=== PATIENT | male | born 1960 | race Caucasian/White ===

== ENCOUNTER → 2021-01-25 11:09 | Outpatient (BNVA) | payer OTHER, SELFPAY | PROVIDERS: PCP Internal Medicine Geriatric Medicine; Referring Provider Internal Medicine Geriatric Medicine; Visit Provider Surgery | DX: K42.9 Umbilical hernia without obstruction or gangrene (principal); L72.0 Epidermal cyst | CPT/HCPCS: 99202 ==

== ENCOUNTER 2021-02-07 07:51 | Day surgery (SDC) | payer OTHER, SELFPAY ==
[2021-01-31 12:49] VITALS: BMI 33.0
[2021-01-31 12:51] VITALS: BMI 33.0
--- NOTE | 2021-02-03 15:25 | P.CONAN_ITS ---
Documented by User: Jacqueline Swanson NP 02/03/21 15:41 HPI - Anesthesia Eval Consult details Narrative: 60yo M for Umbilical Hernia Repair with Mesh and Right Neck Cyst Excision Plavix for h/o stroke (no residual) PMFSH Active Problems Active Problems: All Active Problems (Updated 01/31/21 @ 12:48 by Maureen Gagnon RN) Umbilical hernia (Acute) Epidermal inclusion cyst (Acute) Lacunar stroke (Chronic) Past Medical History Medical History (Updated 01/31/21 @ 12:48 by Maureen Gagnon RN) COVID-19 vaccine series completed Elevated cholesterol GERD (gastroesophageal reflux disease) Lacunar stroke Sleep apnea Family History Family History Father Prostate cancer Surgical History Surgical History (Updated 01/31/21 @ 12:48 by Maureen Gagnon RN) H/O colonoscopy Hx of shoulder surgery Social History Social History Are you a primary director of critical care to a significant other at home: No Do you presently have visiting nurse or other home services: No Alcohol intake: never Patient Tobacco Use Status: Former Tobacco user Quit Date: 11/2019 Tobacco use type: Cigarette Use of substances other than those prescribed or required for medical reasons: No Have you been hit, kicked, punched, or otherwise hurt by someone within the past year? If so, by whom?: No Are you DNR?: No Advance Directives: No Advance Directives Information Provided: Yes (informational brochure mailed) Advance Directives on File: No Recently lost weight without trying: No Eating poorly because of decreased appetite: No Nutrition Risks: No Nutritional Risk Poor oral hygiene: No (upper & lower partials) Meds Allergies Allergy/AdvReac Type Severity Reaction Status Date / Time No Known Allergies Allergy Verified 01/25/21 11:21 Home Medications Medication Instructions Recorded Confirmed Last Taken Type clopidogrel 75 mg tablet 75 mg PO DAILY 01/25/21 01/31/21 01/30/21 History pantoprazole 40 mg tablet,delayed 40 mg PO DAILY 01/25/21 01/31/21 Unknown History release pravastatin 20 mg tablet 20 mg PO DAILY 01/25/21 01/31/21 Unknown History Exam Exam Date and Time: February 03, 2021 1525 Height,Weight and Vital Signs: Height 5 ft 10 in Weight 104.326 kg Assessment and Plan Assessment Anesthesia Assessment: Chart Reviewed Documented by User: Gaurav Hall MD 02/07/21 09:23 [facility] Past Medical History Medical History (Updated 01/31/21 @ 12:48 by Maureen Gagnon RN) COVID-19 vaccine series completed Elevated cholesterol GERD (gastroesophageal reflux disease) Lacunar stroke Sleep apnea Family History Family History Father Prostate cancer Family history of problems with anesthesia: No Surgical History Surgical History (Updated 01/31/21 @ 12:48 by Maureen Gagnon RN) H/O colonoscopy Hx of shoulder surgery History of Problems with Anesthesia: No Social History Social History Are you a primary director of critical care to a significant other at home: No Do you presently have visiting nurse or other home services: No Alcohol intake: never Patient Tobacco Use Status: Former Tobacco user Quit Date: 11/2019 Tobacco use type: Cigarette Use of substances other than those prescribed or required for medical reasons: No Have you been hit, kicked, punched, or otherwise hurt by someone within the past year? If so, by whom?: No Are you DNR?: No Advance Directives: No Advance Directives Information Provided: Yes (informational brochure mailed) Advance Directives on File: No Recently lost weight without trying: No Eating poorly because of decreased appetite: No Nutrition Risks: No Nutritional Risk Poor oral hygiene: No (upper & lower partials) Meds Allergies Allergy/AdvReac Type Severity Reaction Status Date / Time No Known Allergies Allergy Verified 01/25/21 11:21 Home Medications Medication Instructions Recorded Confirmed Last Taken Type clopidogrel 75 mg tablet 75 mg PO DAILY 01/25/21 01/31/21 01/30/21 History pantoprazole 40 mg tablet,delayed 40 mg PO DAILY 01/25/21 01/31/21 Unknown History release pravastatin 20 mg tablet 20 mg PO DAILY 01/25/21 01/31/21 Unknown History Exam Airway Mallampati Class: II TM Dist: >3cm Neck ROM: Full Partial: Lower Loose/Missing/Broken Teeth: Yes and Lower Heart: ok Lungs: ok Assessment and Plan Assessment Anesthesia Assessment: Anesthesia Plan Discussed and Chart Reviewed Final Anesthetic Review Family History of Problems with Anesthesia: No History of Problems with Anesthesia: No NPO: Yes ASA Class: III Final Preanesthetic Review: No Changes in Pt Med Stat, Meds/Allgs Chart Reviewed, Consent Obtained/Reviewed and Anes Risks/Benef Reviewed Patient Risk: Intermediate Procedure Risk: Low Anesthetic Plan Anesthetic Plan: GA and Agree w/ Assess. and Plan Disposition: Standard PACU
[2021-02-07] VITALS (8 sets, daily range): BP systolic 135–161; BP diastolic 86–99; PULSE 67–72; RESP 16–18; TEMP 36.2–36.4; O2SAT 96–98
[2021-02-07] MEDS: Lactated Ringers 1,000 ML 100 ML IVCONT (08:19)
--- NOTE | 2021-02-07 09:18 | MHC.SHP ---
Pre-Procedural Eval Section A Date of Service: 02/07/21 The patient is an INPATIENT: No Changes since office visit: Yes Patient answered all questions; No Cold of Flu in the past 2 weeks, No New Medical Problems and No Changes in Medication The History & Physical has been completed within 30 days and I have reviewed it.: Yes Section B Chief Complaint: Umbilical hernia, Epidermal inclusion cyst Allergies: Allergies Allergy/AdvReac Type Severity Reaction Status Date / Time No Known Allergies Allergy Verified 01/25/21 11:21 Plan Diagnosis/Plan: Unchanged I have reviewed the history and physical and performed a pertinent physical examination on my patient. No changes have occurred unless specified.
--- NOTE | 2021-02-07 10:29 | W.PM.OPN ---
Operative Note Operative Note Date of Service: 02/07/21 Narrative: Preoperative diagnosis:Umbilical hernia, cyst right neck Postoperative diagnosis: same Procedure: Repair of umbilical hernia, excision of right neck cyst Surgeon: Michael More MD Heat Treatment Technician: Anabela Green PA-C Anesthesia:General LMA Indications for procedure: 60 year old male patient with a palpable mass in the right neck and a small umbilical hernia Operative findings: Subcutaneous mass located above the Platismus muscle; small umbilical hernia with preperitoneal fat. Specimen:none Estimated blood loss: 5 mls Complications:none Procedure details: patient was brought to the OR placed in a supine position. After administering general anesthesia the patient's abdomen was prepped with ChloraPrep and draped in a sterile fashion. A surgical time-out was called the consent confirmed. Patient received preoperative antibiotics and Venodyne boots were placed. Local anesthesia consisting of 0.5% Sensorcaine was infiltrated over the umbilicus. A curvilinear incision was made above the umbilicus and carried out through subcutaneous tissue. The umbilical sac was identified and dissected down to the fascial defect. The umbilical sac was then dissected off the umbilical skin. The sac was then dissected circumferentially at the fascial level into the preperitoneal space. The sac was reduced into the abdominal cavity. Only preperitoneal fat was noted within the hernia sac. The preperitoneal space was further defined using electrocautery. A small round Ventralex mesh was then obtained. The this was then deployed within the preperitoneal space and secured to the fascia using a 1 Tycron suture. Fascia was then closed over the mesh using a [id number] 1 Tycron suture. Wounds were then irrigated with saline solution and suctioned dry. Omental skin was reapproximated to the fascia using a 3-0 Polysorb suture. Dermis was closed using interrupted 3-0 Polysorb sutures. Skin was closed using a running subcuticular 4-0 Polysorb suture. Steri-Strips 2 x 2 gauze and Tegaderm were then applied. Attention was then directed to the right neck where a palpable subcutaneous nodules identified. The skin was prepped with ChloraPrep and draped in a sterile fashion. Local anesthesia was then infiltrated in a transverse fashion over the palpable lump. Incision was then made with scalpel carried down into the subcutaneous tissue. The nodules found to be within the subcutaneous tissue above the platysmas muscle. This was dissected using electrocautery free and sent to pathology for further examination. After assuring adequate hemostasis the dermis was reapproximated using interrupted 3-0 Polysorb sutures and skin closed using a running 4-0 Polysorb suture. Sterile dressings consisting of Steri-Strips, 2 x 2 gauze and Tegaderm were then applied. The patient tolerated the procedure well. Sponge, instrument, and needle counts reported as correct. The patient was transferred to PACU in stable condition.
[2021-02-07] MEDS: oxyCODONE HCl Immed Release 5 MG TABLET 10 MG PO (10:54)
[2021-02-07] MEDS: fentaNYL citrate/PF 100 MCG/2 ML VIAL 50 MCG IVPUSH (10:55)
[2021-02-07] MEDS: Ketorolac Tromethamine 30 MG/ML VIAL 15 MG IVPUSH (10:56)
== END 2021-02-07 12:11 | disposition home or self-care (01) ==
PROVIDERS: PCP Internal Medicine Geriatric Medicine; Visit Provider Surgery
PROC: (CPT 49585; principal; 2021-02-07 09:40)
DX: K42.9 Umbilical hernia without obstruction or gangrene (principal); L72.0 Epidermal cyst; E78.00 Pure hypercholesterolemia, unspecified; K21.9 Gastro-esophageal reflux disease without esophagitis; G47.33 Obstructive sleep apnea (adult) (pediatric); Z79.899 Other long term (current) drug therapy; Z86.73 Personal history of transient ischemic attack (TIA), and cerebral infarction without residual deficits; Z87.891 Personal history of nicotine dependence
CPT/HCPCS: 49585; 11422; 88304; C1781; J0690; J1100; J1885; J2250; J2405; J3010

== ENCOUNTER → 2021-02-18 10:04 | Outpatient (BNVA) | payer OTHER, SELFPAY | PROVIDERS: PCP Internal Medicine Geriatric Medicine; Referring Provider Internal Medicine Geriatric Medicine; Visit Provider Surgery | DX: Z48.815 Encounter for surgical aftercare following surgery on the digestive system (principal); Z48.817 Encounter for surgical aftercare following surgery on the skin and subcutaneous tissue; Z87.19 Personal history of other diseases of the digestive system; Z87.2 Personal history of diseases of the skin and subcutaneous tissue | CPT/HCPCS: 99212 ==

== ENCOUNTER → 2021-04-26 08:51 | Outpatient (BNVA) | payer OTHER, SELFPAY | PROVIDERS: PCP Internal Medicine Geriatric Medicine; Referring Provider Internal Medicine Geriatric Medicine; Visit Provider Surgery | DX: Z48.817 Encounter for surgical aftercare following surgery on the skin and subcutaneous tissue (principal); Z48.815 Encounter for surgical aftercare following surgery on the digestive system; Z87.2 Personal history of diseases of the skin and subcutaneous tissue; Z87.19 Personal history of other diseases of the digestive system | CPT/HCPCS: 99212 ==

== ENCOUNTER 2021-06-22 12:17 | Day surgery (SDC) | payer OTHER, SELFPAY ==
[2021-06-14 13:49] VITALS: BMI 33.0
--- NOTE | 2021-06-21 08:56 | HO.ANESPROP2 ---
Documented by User: Jacqueline Swanson NP 06/21/21 09:00 HPI - Anesthesia Eval Consult details Narrative: 60yo M for Upper Endoscopy and Colonoscopy Plavix for hx stroke (no residual) s/p umbilical hernia repair 02/2021 with GA-LMA 4 PMFSH Active Problems Active Problems: All Active Problems (Updated 01/31/21 @ 12:48 by Maureen Gagnon RN) Umbilical hernia (Acute) Epidermal inclusion cyst (Acute) Lacunar stroke (Chronic) Past Medical History Medical History (Updated 01/31/21 @ 12:48 by Maureen Gagnon RN) COVID-19 vaccine series completed Elevated cholesterol GERD (gastroesophageal reflux disease) Lacunar stroke Sleep apnea Family History Family History Father Prostate cancer Family history of problems with anesthesia: No Surgical History Surgical History (Updated 06/14/21 @ 13:36 by Maureen Gagnon RN) H/O colonoscopy Hx of excision of mass Hx of shoulder surgery Hx of umbilical hernia repair History of Problems with Anesthesia: No Social History Social History Are you a primary laboratory animal care veterinarian to a significant other at home: No Do you presently have visiting nurse or other home services: No Alcohol intake: never Patient Tobacco Use Status: Former Tobacco user Quit Date: 2019 Tobacco use type: Cigarette Use of substances other than those prescribed or required for medical reasons: No Have you been hit, kicked, punched, or otherwise hurt by someone within the past year? If so, by whom?: No Are you DNR?: No Advance Directives: No Advance Directives Information Provided: Yes (brochure mailed) Advance Directives on File: No Recently lost weight without trying: No Eating poorly because of decreased appetite: No Nutrition Risks: No Nutritional Risk Poor oral hygiene: No (upper & lower partial dentures) Meds Allergies Allergy/AdvReac Type Severity Reaction Status Date / Time No Known Allergies Allergy Verified 01/25/21 11:21 Home Medications Medication Instructions Recorded Confirmed Last Taken Type clopidogrel 75 mg tablet 75 mg PO DAILY 01/25/21 06/22/21 06/17/21 History pantoprazole 40 mg tablet,delayed 40 mg PO DAILY 01/25/21 06/14/21 Unknown History release pravastatin 20 mg tablet 20 mg PO DAILY 01/25/21 06/14/21 Unknown History Exam Exam Date and Time: June 21, 2021 0856 Height,Weight and Vital Signs: Height 5 ft 10 in Weight 104.326 kg Assessment and Plan Assessment Anesthesia Assessment: Chart Reviewed Final Anesthetic Review Family History of Problems with Anesthesia: No History of Problems with Anesthesia: No Documented by User: Rich Ellis MD 06/22/21 15:41 [facility] Past Medical History Medical History (Updated 01/31/21 @ 12:48 by Maureen Gagnon RN) COVID-19 vaccine series completed Elevated cholesterol GERD (gastroesophageal reflux disease) Lacunar stroke Sleep apnea Functional capacity: independent ambulation Family History Family History Father Prostate cancer Surgical History Surgical History (Updated 06/14/21 @ 13:36 by Maureen Gagnon RN) H/O colonoscopy Hx of excision of mass Hx of shoulder surgery Hx of umbilical hernia repair Social History Social History Are you a primary laboratory animal care veterinarian to a significant other at home: No Do you presently have visiting nurse or other home services: No Alcohol intake: never Patient Tobacco Use Status: Former Tobacco user Quit Date: 2019 Tobacco use type: Cigarette Use of substances other than those prescribed or required for medical reasons: No Have you been hit, kicked, punched, or otherwise hurt by someone within the past year? If so, by whom?: No Are you DNR?: No Advance Directives: No Advance Directives Information Provided: Yes (brochure mailed) Advance Directives on File: No Recently lost weight without trying: No Eating poorly because of decreased appetite: No Nutrition Risks: No Nutritional Risk Poor oral hygiene: No (upper & lower partial dentures) Meds Allergies Allergy/AdvReac Type Severity Reaction Status Date / Time No Known Allergies Allergy Verified 01/25/21 11:21 Home Medications Medication Instructions Recorded Confirmed Last Taken Type clopidogrel 75 mg tablet 75 mg PO DAILY 01/25/21 06/22/21 06/17/21 History pantoprazole 40 mg tablet,delayed 40 mg PO DAILY 01/25/21 06/14/21 Unknown History release pravastatin 20 mg tablet 20 mg PO DAILY 01/25/21 06/14/21 Unknown History Exam Airway Mallampati Class: III TM Dist: >3cm Neck ROM: Full Loose/Missing/Broken Teeth: Yes (Chipped and missing . Poor dentition . ) Heart: S1 , S2 Lungs: b/l breath sounds Other: cold sore Assessment and Plan Assessment Anesthesia Assessment: Anesthesia Plan Discussed Final Anesthetic Review NPO: Yes ASA Class: III Final Preanesthetic Review: No Changes in Pt Med Stat, Meds/Allgs Chart Reviewed, Consent Obtained/Reviewed and Anes Risks/Benef Reviewed Patient Risk: High Procedure Risk: Intermediate Anesthetic Plan Anesthetic Plan: MAC: Disposition: Standard PACU
[2021-06-22 12:55] VITALS: BP 143/90; PULSE 69; RESP 18; TEMP 36.2; O2SAT 97
[2021-06-22] MEDS: Lactated Ringers 1,000 ML 100 ML IVCONT (13:17)
[2021-06-22 15:43] VITALS: BP 94/51; PULSE 75; RESP 14; TEMP 36.4; O2SAT 98
--- NOTE | 2021-06-22 15:43 | P.BOP_ITS ---
Brief Operative Note Date of Service: 06/22/21 Pre-op diagnosis: GERD, Screening Post-op diagnosis: other (Hiatal hernia, R/O Box's, Diverticulosis) Procedure: EGD with biopsies, Colonoscopy to cecum and TI Surgeon: Davian Melara Anesthesia: MAC Was an Railroad Car Truck Builder used for this Procedure?: No Estimated blood loss (mL): 2.0 Pathology: other (A. EG Junction at 39cm) Condition: stable Disposition: PACU
[2021-06-22 15:58] VITALS: BP 121/83; PULSE 71; RESP 18; TEMP 36.8; O2SAT 96
--- NOTE | 2021-06-23 02:46 | OP_ITS ---
SURGEON: Davian Melara MD INDICATIONS: Patient presents for evaluation of gastroesophageal reflux and colorectal cancer screening. Full consent has been obtained from him for this, including risks of bleeding and perforation. PREOPERATIVE DIAGNOSIS: POSTOPERATIVE DIAGNOSIS: PROCEDURE PERFORMED: Esophagogastroduodenoscopy with biopsies and colonoscopy to the cecum and terminal ileum. ESTIMATED BLOOD LOSS: COMPLICATIONS: ANESTHESIA: Monitored anesthesia care. ASSISTANTS: SPECIMENS: PREOPERATIVE DIAGNOSES: Gastroesophageal reflux and colorectal cancer screening. POSTOPERATIVE DIAGNOSES: Gastroesophageal reflux and colorectal cancer screening, small hiatal hernia, mild sigmoid diverticulosis, small internal hemorrhoids. DESCRIPTION OF PROCEDURE: The patient was placed in the left lateral decubitus position. The Olympus video gastroscope was passed in the posterior oropharynx and upper esophagus under direct vision. The scope was passed slowly to the distal esophagus. The gastroesophageal junction appeared at 39 cm. There was a small area of possible Box mucosa. There was no esophagitis nor mass. The scope entered into the stomach. There was a small hiatal hernia. The scope was advanced to pylorus and duodenum was cannulated to the descending portion. The duodenum including the bulb appeared normal without mass or ulceration. The scope was withdrawn back into the stomach. The gastric antrum and body appeared normal with good peristalsis. The scope was retroflexed visualizing the proximal stomach carefully, which appeared normal, without any sign of mass or ulceration. The scope was straightened and withdrawn back to the esophagus. Biopsies were obtained at the EG junction at 39 cm. Proximal to this, the esophageal mucosa appeared normal. The scope was withdrawn from the patient. He was turned around for the colonoscopy. The digital rectal exam revealed no abnormalities. The Olympus video pediatric colonoscope was entered into the rectum and advanced easily to the cecum. Once in the cecum, I did identify normal-appearing cecal pouch with appendiceal orifice and a normal-appearing ileocecal valve. The terminal ileum was cannulated and appeared normal. The scope was withdrawn back in the colon. The entire cecum and ileocecal valve appeared normal. The scope was slowly withdrawn assessing all mucosal surfaces carefully. Preparation was excellent. I did not visualize any signs of polyps, colitis, nor angiodysplasia. There was a mild amount of sigmoid diverticulosis. In the rectum, scope was retroflexed visualizing small internal hemorrhoids, but no other pathology. The rectal mucosa appeared normal. The scope was straightened and withdrawn from the patient. He tolerated the procedure well and was returned to recovery area in stable condition. IMPRESSION: 1. Small hiatal hernia, gastroesophageal reflux, rule out Box's esophagus. 2. Mild sigmoid diverticulosis. 3. Small internal hemorrhoids. PLAN: The results of the biopsies will be checked. If there is Box's esophagus without dysplasia, I would recommend a repeat upper endoscopy in 3 years. He was advised to continue his pantoprazole as needed for reflux. I would recommend a repeat colonoscopy in 10 years given the negative exam and negative family history. He will otherwise see me on a p.r.n. basis. He was advised to resume his clopidogrel in 48 hours. This has been discussed with his . MD DAMON Scruggs/BELINDA / [id number] MTDD
== END 2021-06-22 16:23 | disposition home or self-care (01) ==
PROVIDERS: PCP Internal Medicine Geriatric Medicine; Visit Provider Internal Medicine
PROC: (CPT 45378; principal; 2021-06-22 13:30)
DX: Z12.11 Encounter for screening for malignant neoplasm of colon (principal); K57.30 Diverticulosis of large intestine without perforation or abscess without bleeding; K64.8 Other hemorrhoids; K59.00 Constipation, unspecified; K21.9 Gastro-esophageal reflux disease without esophagitis; K44.9 Diaphragmatic hernia without obstruction or gangrene; E78.5 Hyperlipidemia, unspecified; G47.33 Obstructive sleep apnea (adult) (pediatric); Z86.73 Personal history of transient ischemic attack (TIA), and cerebral infarction without residual deficits; Z79.899 Other long term (current) drug therapy; Z87.891 Personal history of nicotine dependence
CPT/HCPCS: 45378; 43239; 88305; J3010

== ENCOUNTER 2021-10-21 13:26 | Outpatient (REF) | payer OTHER, SELFPAY ==
--- NOTE | ~2021-10-21 | CT_ITS ---
EXAMINATION: CT CHEST SCREENING CLINICAL INFORMATION: 40 pack year history. Quit 2 years ago. COMPARISON: Previous chest x-ray October 2017 TECHNIQUE: Multidetector volumetric CT imaging of the chest is performed without contrast using low dose technique. Additional 2D coronal and sagittal reformatted images and axial 3D maximum intensity projection (MIP) images are generated on the CT workstation. This CT examination was performed using dose optimization techniques as appropriate, variously including the following: *Automated exposure control *Adjustment of mA and/or kV according to patient size (this includes techniques or standardized protocols for targeted exams where dose is matched to indication/reason for exam; i.e. extremities or head) *Use of iterative reconstruction technique DLP: 73 mGy-cm FINDINGS: LUNGS: There is scarring or subsegmental atelectasis in the anterior segment of the right upper lobe adjacent to the right first rib costochondral cartilage. There is a 3 mm nodule in the superior segment of the left lower lobe adjacent to fissure axial image 209 series 5 probably representing a subpleural lymph node. There is a 2 mm peripheral right middle lobe nodule axial image 250 series 5. No endobronchial or endotracheal lesion. MEDIASTINUM: There is coronary artery calcification. The mediastinum is otherwise normal. PLEURA: There is no pleural effusion. No pleural mass or thickening. AXILLA: No lymphadenopathy. UPPER ABDOMEN: Fatty liver. Small calcification in the spleen probably related to old granulomatous disease. Mild diverticulosis of the colon. OSSEOUS STRUCTURES: Degenerative changes of the spine. CT/CT lung screening IMPRESSION: Small pulmonary nodules. Mild coronary artery calcification. ASSESSMENT: Lung-RADS category 2: Benign RECOMMENDATION: Annual low-dose chest CT follow-up recommended.
== END 2021-10-21 13:27 | disposition home or self-care (01) ==
LOC: HO.CT 13:26
PROVIDERS: PCP Internal Medicine Geriatric Medicine; Visit Provider Physician Assistant Medical
DX: Z12.2 Encounter for screening for malignant neoplasm of respiratory organs (principal); Z87.891 Personal history of nicotine dependence
CPT/HCPCS: 71271; G0296

== ENCOUNTER 2022-04-13 12:44 | Outpatient (REF) | payer OTHER, SELFPAY ==
--- NOTE | ~2022-04-13 | US_ITS ---
EXAMINATION: US SCROTUM CLINICAL INFORMATION: Scrotal pain. COMPARISON: None TECHNIQUE: A sonogram of the scrotum was performed assessing sheikh-scale appearance and color Doppler flow. Spectral Doppler analysis of the arterial and venous flow were performed in the testes bilaterally. FINDINGS: RIGHT: Right testicle measures 4.0 x 2.7 x 3.2 cm, volume 18.1 mL. No focal testicular parenchymal lesions are visualized. Spectral Doppler analysis of the arterial and venous flow is normal in the right testis. Right epididymal head is normal in size. No right hydrocele or varicocele is seen. Right epididymal Doppler flow is normal. LEFT: Left testicle measures 4.0 x 2.3 x 2.9 cm, volume 14.0 mL. No focal testicular parenchymal lesions are visualized. Spectral Doppler analysis of the arterial and venous flow is normal in the left testis. Left epididymal head is normal in size. No left varicocele is seen. Small left hydrocele. Left epididymal Doppler flow is normal. US/US scrotum IMPRESSION: Small left hydrocele.
== END 2022-04-13 12:45 | disposition home or self-care (01) ==
LOC: HO.US 12:44
PROVIDERS: PCP Internal Medicine Geriatric Medicine; Visit Provider Internal Medicine Geriatric Medicine
DX: N50.82 Scrotal pain (principal)
CPT/HCPCS: 76870

== ENCOUNTER → 2022-06-23 10:35 | Outpatient (BNVA) | payer OTHER, SELFPAY | PROVIDERS: PCP Internal Medicine Geriatric Medicine; Visit Provider Nurse Practitioner Family | DX: N40.1 Benign prostatic hyperplasia with lower urinary tract symptoms (principal); R35.0 Frequency of micturition; N52.9 Male erectile dysfunction, unspecified | CPT/HCPCS: 99202 ==

== ENCOUNTER 2022-06-29 09:37 | Outpatient (REF) | payer OTHER, SELFPAY ==
--- NOTE | ~2022-06-29 | US_ITS ---
EXAMINATION: US RETROPERITONEAL LIMITED (RENAL ONLY) CLINICAL INFORMATION: Benign prostatic hyperplasia without lower urinary tract symptoms. COMPARISON: None available. TECHNIQUE: Real-time imaging of the kidneys. FINDINGS: RIGHT KIDNEY: 12.2 x 6.9 x 6.7 cm (SAG x AP x TRV). The kidney is normal in size, contour, and echogenicity. Renal cortical thickness is normal. No calculi or focal parenchymal lesions. No hydronephrosis. LEFT KIDNEY: 13.7 x 7.5 x 6.4 cm (SAG x AP x TRV). The kidney is normal in size, contour, and echogenicity. Renal cortical thickness is normal. No calculi or focal parenchymal lesions. No hydronephrosis. US/US renal BI IMPRESSION: Normal kidneys. No hydronephrosis.
== END 2022-06-29 09:38 | disposition home or self-care (01) ==
LOC: HO.HMGCX 09:37
PROVIDERS: PCP Internal Medicine Geriatric Medicine; Visit Provider Nurse Practitioner Family
DX: N40.1 Benign prostatic hyperplasia with lower urinary tract symptoms (principal); R35.0 Frequency of micturition
CPT/HCPCS: 76775

== ENCOUNTER 2022-07-04 10:10 | Outpatient (REF) | payer OTHER, SELFPAY ==
--- NOTE | ~2022-07-04 | US_ITS ---
EXAMINATION: US PELVIS LIMITED (BLADDER) CLINICAL INFORMATION: BPH, nocturia. COMPARISON: Ultrasound retroperitoneal limited (renal only) 06/29/2022. TECHNIQUE: Real-time imaging of the bladder. FINDINGS: BLADDER: Well distended and normal. Bilateral ureteral jets are demonstrated. Prevoid bladder volume is 305 mL. Postvoid bladder volume is 25 mL. ADDITIONAL FINDINGS: Prostate is enlarged with a volume of 65.5 mL with dystrophic calcification. US/US bladder IMPRESSION: Unremarkable sonographic appearance of the bladder. Prostatomegaly..
== END 2022-07-04 10:11 | disposition home or self-care (01) ==
LOC: HO.HMGCX 10:10
PROVIDERS: PCP Internal Medicine Geriatric Medicine; Visit Provider Nurse Practitioner Family
DX: N40.0 Benign prostatic hyperplasia without lower urinary tract symptoms (principal); R35.0 Frequency of micturition
CPT/HCPCS: 76857

== ENCOUNTER 2022-09-22 10:12 | Outpatient (AMB) | payer OTHER, SELFPAY ==
--- NOTE | 2022-09-22 10:20 | A.OFFVIS_ITS ---
Intake Intake Visit Reasons: Hydrocele- follow up Intake Note: Patient is present for follow up labs hydrocele/erectile dysfunction (imaging 06/29 & 07/04) Urology Medications: Cialis Blood Thinner: Clopidogrel Welt Sole Layer Required: No Accompanied by: Unknown Allergies No Known Allergies Allergy (Verified 09/22/22 21:09) Medication List - Last Reconciled 09/22/22 by LIZ Calvin- clopidogrel 75 mg PO DAILY losartan 25 mg PO DAILY pantoprazole 40 mg PO DAILY rosuvastatin 20 mg PO BEDTIME tadalafil (Cialis) 5 mg PO DAILY 30 days HPI HPI Comments History of Present Illness Details Migel is a 62-year-old male patient of Dr. Schaeffer who was accompanied by his significant other Merly at today's visit. He has a past medical history of nicotine dependence quit in 2019, hypercholesteremia, GERD, CVA, and sleep apnea. He presents to the office today for a follow up. Of note, patient was seen approximately 3 months ago as a new patient for right-sided retractile testicle as well as erectile issues at which time a retroperitoneal ultrasound was ordered and the patient was started Cialis 5 mg daily. In discussion with the patient today he reports to be feeling and doing well. Bilateral kidneys with no calculi, lesions, and or hydronephrosis noted. The bladder is well distended and normal. Bilateral ureteral jets are demonstrated. Pre void bladder volume is approximately 300 mL. Postvoid bladder volumes approximately 25 mL. Prostate is enlarged and volume of approximately 66 mL. He patient reports to be happy with 5 mg of Cialis daily as this has been helping him maintaining his erections. He also reports noting improvement in urinary frequency and nocturia on this medication. He otherwise denies incontinence, hematuria, dysuria, foul smelling urine, changes to urinary stream, flank pain, fever, and or chills. During last office visit patient reports PCP to be follow ing PSAs however and attempt to obtain previous labs it does not appear there are any recent PSA lab values. Last PSA that can be obtained was from 2016 and was reported 2.8. Discussed obtaining more recent lab value. 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 ROSY offered however declined. He discusses his upcoming camping trip. In office urinalysis results reviewed with the patient today. He otherwise denies any issues or concerns at this time. [facility] Medical History COVID-19 vaccine series completed Elevated cholesterol GERD (gastroesophageal reflux disease) History of CVA (cerebrovascular accident) (~11/2019) Personal history of nicotine dependence Sleep apnea Surgical History History of colonoscopy History of esophagogastroduodenoscopy (EGD) History of excision of mass History of shoulder surgery History of umbilical hernia repair Family History Father Prostate cancer Social History Are you a primary infant caregiver to a significant other at home: No Do you presently have visiting nurse or other home services: No Alcohol intake: never Patient Tobacco Use Status: Former Tobacco user Quit Date: 2019 Tobacco use type: Cigarette Years Smoked: (onset 18yo, 1ppd x 41yrs, 40pyh - quit 12/01/2019) Review of Systems Const Reports as per HPI Eyes Reports no additional complaints ENT Reports no additional complaints Card Reports as per HPI Resp Reports as per HPI GI Reports as per HPI Reports as per HPI Musc Reports no additional complaints Neuro Reports as per HPI Psych Reports no additional complaints Endo Reports no additional complaints Marvin/Lymph Reports no additional complaints Aller/Immun Reports no additional complaints Physical Exam Const General: cooperative, healthy appearing, comfortable, no acute distress, well developed, alert and awake Orientation/consciousness: patient oriented x3 Limitations: no limitations HEENT Head: Yes normal to inspection, Yes normocephalic and Yes atraumatic Ears: hearing grossly normal bilaterally Eyes General: appearance normal, both eyes and all related structures Neck Neck: Yes normal visual inspection and Yes trachea midline Chest Chest palpation & inspection: normal inspection of the chest Resp Effort & Inspection: normal respiratory effort and able to speak in complete sentences Cardio Rate: regular rate GI Inspection: Yes normal to inspection Rectal Exam - Male: Yes deferred General: Yes no CVA tenderness Male General Exam: Yes normal external exam Penis: normal penis Meatus: meatus normal Scrotum: other (heightened cremasteric reflex right greater than left.) Testes: Testes normal Back/Spine/Pelvis Back: no CVA tenderness Skin General skin exam: no rashes or lesions noted Neuro General: patient oriented x3 Extrem General: Yes normal to inspection Psych Appearance: grossly normal and well kempt Mental Status: mental status grossly normal Speech and movement: Normal speech and movement present and Clear speech present Affect: normal affect Attitude: cooperative Thought process: Normal thought process present Thought content: Normal thought content present Insight: Good insight present (Psych) Judgement: Good judgement present (Psych) Results AMB Urinalysis, Automated UA Leukoctes 0 Nigel/uL Last Edit by [employer] on 09/22/22 10:33 UA Nitrite Negative Last Edit by [employer] on 09/22/22 10:33 UA Urobilinogen 0.2 mg/dL Last Edit by [employer] on 09/22/22 10:33 UA Protein 15 mg/dL Last Edit by [employer] on 09/22/22 10:33 UA pH 6.0 Last Edit by [employer] on 09/22/22 10:33 UA Blood 0 David/uL Last Edit by [employer] on 09/22/22 10:33 UA Specific [place] 1.025 Last Edit by [employer] on 09/22/22 10:33 UA Ketone Negative Last Edit by [employer] on 09/22/22 10:33 UA Bilirubin 0 mg/dL Last Edit by [employer] on 09/22/22 10:33 UA Glucose 0 mg/dL Last Edit by [employer] on 09/22/22 10:33 Results Reviewed Results Reviewed: Laboratory Last Values Urine pH (Auto) 6.0 09/22/22 10:25 Specific [place] (Auto) 1.025 09/22/22 10:25 Urine Protein (Auto) 15 mg/dL 09/22/22 10:25 Glucose (UA)(Auto) 0 mg/dL 09/22/22 10:25 Urine Ketones (Auto) Negative 09/22/22 10:25 Urine Blood (Auto) 0 David/uL 09/22/22 10:25 Urine Nitrite (Auto) Negative 09/22/22 10:25 Urine Bilirubin (Auto) 0 mg/dL 09/22/22 10:25 Urine Urobilinogen (Auto) 0.2 mg/dL 09/22/22 10:25 Leukocyte Esterase (Auto) 0 Nigel/uL 09/22/22 10:25 Date of Service: 07/04/22 EXAMINATION: US PELVIS LIMITED (BLADDER) FINDINGS: BLADDER: Well distended and normal. Bilateral ureteral jets are demonstrated. Prevoid bladder volume is 305 mL. Postvoid bladder volume is 25 mL. ADDITIONAL FINDINGS: Prostate is enlarged with a volume of 65.5 mL with dystrophic calcification. Date of Service: 06/29/22 EXAMINATION: US RETROPERITONEAL LIMITED (RENAL ONLY) FINDINGS: RIGHT KIDNEY: 12.2 x 6.9 x 6.7 cm (SAG x AP x TRV). The kidney is normal in size, contour, and echogenicity. Renal cortical thickness is normal. No calculi or focal parenchymal lesions. No hydronephrosis. LEFT KIDNEY: 13.7 x 7.5 x 6.4 cm (SAG x AP x TRV). The kidney is normal in size, contour, and echogenicity. Renal cortical thickness is normal. No calculi or focal parenchymal lesions. No hydronephrosis. IMPRESSION: Normal kidneys. No hydronephrosis. Assessment & Plan Assessment & Plan (1) Erectile dysfunction: Code(s): N52.9 - Male erectile dysfunction, unspecified (2) Urinary frequency: Code(s): R35.0 - Frequency of micturition (3) Enlarged prostate: Code(s): N40.0 - Benign prostatic hyperplasia without lower urinary tract symptoms Plan In office urinalysis results reviewed with the patient today. Recent retroperitoneal ultrasound results reviewed with the patient today. Will obtain PSA for further assessment evaluation. Continue Cialis as patient reports significant improvement in urinary symptoms as well as improvement in maintaining erections; refill provided. Follow up in 1-2 months with lab to be completed prior; or sooner with any issues, concerns, and or questions. Orders: Orders PSA,Total (Free>4and<10) Today N40.0 - Benign prostatic hyperplasia without lower urinary tract symptoms AMB Urinalysis Automated Today Z13.9 - Encounter for screening, unspecified Medications: Refilled tadalafil (Cialis) [facility] [id number] 5 mg PO DAILY 30 days 90 tabs 0RF sexual activity Patient Instructions: The patient had an opportunity to ask questions regarding the treatment plan. All questions were answered. Physical exam, labs, and imaging were discussed and reviewed in detail. As well as risks, benefits, and discussion of treatment choices. No major barriers to understanding were identified. The patient expressed understanding and agreement with the above treatment plan. The patient was made aware they should contact our office by phone for worsening of their current condition, the appearance of new symptoms, or with any questions or concerns. Compliance is encouraged with any medications and follow up testing that is ordered. It is a privilege to be allowed the opportunity to participate in? your urological care.? Again, if you have any questions or concerns If you have any questions or concerns please do not hesitate to contact me. The office is [phone]. This note is constructed using voice recognition software. While every effort has been made to ensure accuracy sensitizer errors may have been included. Yours sincerely, HILTON Calvin Coding Level of Care Code Est Pt Level 3 (74544) Diagnoses Erectile dysfunction N52.9 Urinary frequency R35.0 Enlarged prostate N40.0
== END 2022-09-22 10:58 | disposition home or self-care (01) ==
PROVIDERS: Visit Provider Nurse Practitioner Family
DX: N52.9 Male erectile dysfunction, unspecified (principal); R35.0 Frequency of micturition; N40.0 Benign prostatic hyperplasia without lower urinary tract symptoms
CPT/HCPCS: 99213

== ENCOUNTER → 2022-09-22 10:12 | Outpatient (BNVA) | payer OTHER, SELFPAY | PROVIDERS: Visit Provider Nurse Practitioner Family | DX: N43.3 Hydrocele, unspecified (principal); N40.0 Benign prostatic hyperplasia without lower urinary tract symptoms; N52.9 Male erectile dysfunction, unspecified; R35.0 Frequency of micturition; Z79.899 Other long term (current) drug therapy | CPT/HCPCS: 99212 ==

== ENCOUNTER 2022-10-25 09:32 | Outpatient (REF) | payer OTHER, SELFPAY ==
[2022-10-25 11:21] LABS: MANUAL DIFF FLAG NO
[2022-10-25 11:35] LABS: Basophils Percent Auto 0.5 % (0-2); Eosinophils Absolute Auto 0.1 X10*3/uL (0.0-0.4); Eosinophils Percent Auto 2.3 % (0-4); Hematocrit 45.8 % (42.0-52.0); Hemoglobin 15.4 g/dl (14.0-18.0); Imm Gran Abs Auto 0.03 X10*3/uL (0.00-0.03); Imm Gran Pct Auto 0.5 % (0.0-0.4); Lymphocytes Absolute Auto 1.8 X10*3/uL (1.2-4.9); Lymphocytes Percent Auto 32.6 % (20-40); Mean Corpuscular HGB Conc 33.6 g/dl (31.0-36.0); Mean Corpuscular Hemoglobin 28.8 pg (27.0-33.0); Mean Corpuscular Volume 85.8 fL (80.0-98.0); Mean Platelet Volume 10.5 fL (9.4-12.4); Monocytes Absolute Auto 0.7 X10*3/uL (0.1-1.2); Monocytes Percent Auto 11.7 % (2-11); Neutrophils Absolute Auto 2.9 x10*3/uL (2.0-8.3); Neutrophils Percent Auto 52.4 % (45-73); Platelet Count 182 X10*3/uL (160-400); Red Blood Count 5.34 X10*6/uL (4.60-5.80); Red Cell Distribution Width 13.3 % (11.0-16.0); White Blood Count 5.6 X10*3/uL (4.8-10.8)
[2022-10-25 12:03] LABS: Alanine Aminotransferase 38 U/L (0-40); Albumin Level 4.4 g/dL (3.5-5.0); Alkaline Phosphatase 84 U/L (39-117); Anion Gap 12 (12-20); Aspartate Amino Transferase 38 U/L (5-37); Bilirubin Total 0.5 mg/dL (0.0-1.0); Blood Urea Nitrogen 18 mg/dL (9-16); Calcium 9.6 mg/dL (8.4-10.2); Carbon Dioxide 26 mmol/L (22-29); Chloride 109 mmol/L (96-108); Cholesterol 135 mg/dL (<200); Estimated Glomerular Filt Rate > 60; Glucose Random 99 mg/dL (60-115); HDL Cholesterol 29 mg/dL (>40); LDL Cholesterol Calculated 65 mg/dL (<100); Potassium 4.2 mmol/L (3.3-5.1); Sodium 143 mmol/L (135-145); Total Protein 7.2 g/dL (6.5-8.0); Triglycerides 209 mg/dL (<150)
[2022-10-25 12:31] LABS: Prostate Specific Antigen 2.85 ng/mL (<0.05-4.0)
== END 2022-10-25 09:33 | disposition home or self-care (01) ==
LOC: HO.HHCL 09:32
PROVIDERS: Visit Provider Internal Medicine Geriatric Medicine
DX: Z12.5 Encounter for screening for malignant neoplasm of prostate (principal); I10 Essential (primary) hypertension; N40.0 Benign prostatic hyperplasia without lower urinary tract symptoms; Z79.899 Other long term (current) drug therapy
CPT/HCPCS: 36415; 80053; 80061; 84153; 85025

== ENCOUNTER 2022-11-24 10:49 | Outpatient (AMB) | payer OTHER, SELFPAY ==
--- NOTE | 2022-11-24 10:52 | MHC.OFFVIS ---
Intake Intake Visit Reasons: follow up/labs Intake Note: Patient is present for tele visit follow up Enlarged Prostate/Frequency/labs (psa 2.85) Urology Medications: Tadalafil Blood Thinner: Clopidogrel Safe And Vault Installer Required: No Accompanied by: Self / Same As Patient Allergies No Known Allergies Allergy (Verified 11/26/22 17:19) Medication List - Last Reconciled 11/26/22 by HILTON Calvin clopidogrel 75 mg PO DAILY finasteride 5 mg PO DAILY 90 days losartan 25 mg PO DAILY pantoprazole 40 mg PO DAILY rosuvastatin 20 mg PO BEDTIME tadalafil (Cialis) 5 mg PO DAILY 30 days HPI HPI Comments History of Present Illness Details Migel is a 62-year-old male patient of Dr. Schaeffer. He has a past medical history of nicotine dependence quit in 2019, hypercholesteremia, GERD, CVA, and sleep apnea. He is being follow-up on today via telehealth. Of note, patient was seen approximately presents to the office today for a follow up. Of note, patient was seen approximately 2 months ago at which time a PSA was ordered for further assessment evaluation. These results were reviewed with the patient today. PSA 10/25--2.9. Patient with a previous retroperitoneal ultrasound noting bilateral kidneys with no calculi, lesions, and or hydronephrosis noted. The bladder is well distended and normal. Bilateral ureteral jets are demonstrated. Pre void bladder volume is approximately 300 mL. Postvoid bladder volumes approximately 25 mL. Prostate is enlarged and volume of approximately 66 mL. He patient reports to be happy with 5 mg of Cialis daily as this has been helping him maintaining his erections. He also reports noting improvement in urinary frequency and nocturia on this medication. He otherwise denies incontinence, hematuria, dysuria, foul smelling urine, changes to urinary stream, flank pain, fever, and or chills. Discuss trial of finasteride versus surveillance monitoring given retroperitoneal ultrasound noting enlarged prostate and PSA 2.9. Discussed risks and benefits of surveillance monitoring verses trial of finasteride. He otherwise denies any other issues or concerns at this time. [facility] Medical History History of CVA (cerebrovascular accident) (~11/2019) Personal history of nicotine dependence Sleep apnea COVID-19 vaccine series completed GERD (gastroesophageal reflux disease) Elevated cholesterol Surgical History History of colonoscopy History of esophagogastroduodenoscopy (EGD) History of excision of mass History of shoulder surgery History of umbilical hernia repair Family History Father Prostate cancer Social History Are you a primary emergency care attendant to a significant other at home: No Do you presently have visiting nurse or other home services: No Alcohol intake: never Patient Tobacco Use Status: Former Tobacco user Quit Date: 2019 Tobacco use type: Cigarette Years Smoked: (onset 18yo, 1ppd x 41yrs, 40pyh - quit 12/01/2019) Review of Systems Const Reports as per HPI Eyes Reports no additional complaints ENT Reports no additional complaints Card Reports as per HPI Resp Reports as per HPI GI Reports as per HPI Reports as per HPI Musc Reports no additional complaints Neuro Reports as per HPI Psych Reports no additional complaints Endo Reports no additional complaints Marvin/Lymph Reports no additional complaints Aller/Immun Reports no additional complaints Physical Exam Const General: cooperative Resp Effort & Inspection: able to speak in complete sentences Psych Speech and movement: Clear speech present Attitude: cooperative Thought process: Normal thought process present Thought content: Normal thought content present Insight: Good insight present (Psych) Judgement: Good judgement present (Psych) Assessment & Plan Assessment & Plan (1) Enlarged prostate: Code(s): N40.0 - Benign prostatic hyperplasia without lower urinary tract symptoms (2) Erectile dysfunction: Code(s): N52.9 - Male erectile dysfunction, unspecified (3) Urinary frequency: Code(s): R35.0 - Frequency of micturition Plan Recent PSA results reviewed with the patient today; as noted above. Discussed surveillance monitoring verses trial of finasteride given enlarged prostate and PSA 2.9 Continue Cialis 5 mg daily as patient reports improvement in erections as well as lower urinary tract symptoms Start finasteride 5 mg daily. Will obtain PSA in 6 months. Follow-up in 6 months with labs to be completed prior; or sooner with any issues, concerns, and or questions. Orders: Orders Prostate Specific Antigen 6 Months N40.0 - Benign prostatic hyperplasia without lower urinary tract symptoms Medications: New finasteride 5 mg PO DAILY 90 days 90 tabs 3RF N13.8 - Other obstructive and reflux uropathy, N40.1 - Benign prostatic hyperplasia with lower urinary tract symptoms, R33.9 - Retention of urine, unspecified Patient Instructions: The patient had an opportunity to ask questions regarding the treatment plan. All questions were answered. Physical exam, labs, and imaging were discussed and reviewed in detail. As well as risks, benefits, and discussion of treatment choices. No major barriers to understanding were identified. The patient expressed understanding and agreement with the above treatment plan. The patient was made aware they should contact our office by phone for worsening of their current condition, the appearance of new symptoms, or with any questions or concerns. Compliance is encouraged with any medications and follow up testing that is ordered. It is a privilege to be allowed the opportunity to participate in? your urological care.? Again, if you have any questions or concerns If you have any questions or concerns please do not hesitate to contact me. The office is [phone]. This note is constructed using voice recognition software. While every effort has been made to ensure accuracy mast maker errors may have been included. Yours sincerely, CHOCO Calvin Telehealth Telehealth Location of provider rendering services: practice address Location of patient: address on file Patient Identification confirmed using: Name, : Yes Telehealth method: voice only Patient verbally consented to treatment: Yes Patient verbally consented to billing insurance company: Yes Patient informed of any privacy concerns related to visit: Yes Coding Level of Care Code Tele Est Pt Level 4 (22928) Diagnoses Enlarged prostate N40.0 Erectile dysfunction N52.9 Urinary frequency R35.0 Time Spent (min) 20
== END 2022-11-24 12:02 | disposition home or self-care (01) ==
PROVIDERS: PCP Internal Medicine Geriatric Medicine; Visit Provider Nurse Practitioner Family
DX: N40.0 Benign prostatic hyperplasia without lower urinary tract symptoms (principal); N52.9 Male erectile dysfunction, unspecified; R35.0 Frequency of micturition
CPT/HCPCS: 99214

== ENCOUNTER → 2022-11-24 10:49 | Outpatient (BNVA) | payer OTHER, SELFPAY | PROVIDERS: PCP Internal Medicine Geriatric Medicine; Visit Provider Nurse Practitioner Family ==

== ENCOUNTER 2023-05-19 07:25 | Outpatient (REF) | payer OTHER, SELFPAY ==
[2023-05-19 12:44] LABS: Alanine Aminotransferase 30 U/L (0-40); Albumin Level 4.5 g/dL (3.5-5.0); Alkaline Phosphatase 96 U/L (39-117); Anion Gap 14 (12-20); Aspartate Amino Transferase 40 U/L (5-37); Bilirubin Total 0.3 mg/dL (0.0-1.0); Blood Urea Nitrogen 20 mg/dL (9-16); Calcium 9.6 mg/dL (8.4-10.2); Carbon Dioxide 23 mmol/L (22-29); Chloride 110 mmol/L (96-108); Cholesterol 165 mg/dL (<200); Estimated Glomerular Filt Rate > 60; Glucose Random 111 mg/dL (60-115); HDL Cholesterol 31 mg/dL (>40); Potassium 4.4 mmol/L (3.3-5.1); Sodium 143 mmol/L (135-145); Total Protein 7.5 g/dL (6.5-8.0); Triglycerides 567 mg/dL (<150)
[2023-05-19 13:06] LABS: Prostate Specific Antigen 1.08 ng/mL (<0.05-4.0)
== END 2023-05-19 07:26 | disposition home or self-care (01) ==
LOC: HO.HMGCLDS 07:25
PROVIDERS: Nurse Practitioner Family; PCP Internal Medicine Geriatric Medicine; Visit Provider Internal Medicine Geriatric Medicine
DX: N40.0 Benign prostatic hyperplasia without lower urinary tract symptoms (principal); I10 Essential (primary) hypertension; E78.00 Pure hypercholesterolemia, unspecified
CPT/HCPCS: 36415; 80053; 80061; 84153

== ENCOUNTER 2023-06-01 13:07 | Outpatient (REF) | payer OTHER, SELFPAY ==
[2023-06-01 17:25] LABS: TSH reflex Free T4 1.33 uIU/mL (0.32-4.0)
[2023-06-01 17:29] LABS: PSA,Total (Free>4and<10) 1.14 ng/mL (0.00-4.00)
[2023-06-01 18:32] LABS: Creatinine Urine 187.04 mg/dL; Microalbum/Creatinine Ratio Ur 68.4 ug/mg cr (<30)
== END 2023-06-01 13:08 | disposition home or self-care (01) ==
LOC: HO.HHCL 13:07
PROVIDERS: Nurse Practitioner Family; Visit Provider Internal Medicine Geriatric Medicine
DX: E78.2 Mixed hyperlipidemia (principal); N40.0 Benign prostatic hyperplasia without lower urinary tract symptoms
CPT/HCPCS: 36415; 82043; 82570; 84153; 84443

== ENCOUNTER 2023-07-31 10:17 | Outpatient (REF) | payer OTHER, SELFPAY | END 2023-07-31 10:18 | disposition home or self-care (01) | LOC: HO.LNP 10:17 | PROVIDERS: PCP Internal Medicine Geriatric Medicine; Visit Provider Nurse Practitioner Family | DX: N40.1 Benign prostatic hyperplasia with lower urinary tract symptoms (principal); R35.0 Frequency of micturition; R39.12 Poor urinary stream; R35.1 Nocturia; N13.8 Other obstructive and reflux uropathy; R33.8 Other retention of urine; N52.9 Male erectile dysfunction, unspecified; Z87.898 Personal history of other specified conditions | CPT/HCPCS: 81003; 87086; 99212 ==

== ENCOUNTER 2023-07-31 10:17 | Outpatient (AMB) | payer OTHER, SELFPAY ==
--- NOTE | 2023-07-31 10:18 | MHC.OFFVIS ---
Intake Visit Reasons: 6m/labs(set) Intake Note: Patient is present for follow up visit on Enlarged Prostate and PSA labs PSA: 1.14 Urology Medications: Tadalafil, Finasteride Blood Thinner: Clopidogrel Software Administrator Required: No Accompanied by: Self / Same As Patient Allergies No Known Allergies Allergy (Verified 07/31/23 11:10) Medication List - Last Reconciled 07/31/23 by HILTON Calvin clopidogrel 75 mg PO DAILY finasteride 5 mg PO .MWF 90 days losartan 25 mg PO DAILY pantoprazole 40 mg PO DAILY rosuvastatin 20 mg PO BEDTIME tadalafil (Cialis) 5 mg PO DAILY 30 days tamsulosin 0.4 mg PO BEDTIME 30 days HPI Comments Details: Migel is a 63-year-old male patient of Dr. Schaeffer. He has a past medical history of nicotine dependence quit in 2019, hypercholesteremia, GERD, CVA, and sleep apnea. He presents to the office today for follow-up of his lower urinary tract symptoms and erectile dysfunction. In discussion with the patient today reports to be doing and feeling well. Recent PSA results reviewed with the patient today as noted and trended below. He discusses that although finasteride and Cialis or prescribed daily he takes them typically 2-3 times per week. He does report noting urinary hesitancy and weak urinary stream. Discussed attempting to take Cialis daily for potential bladder stability in assisting with these lower urinary tract symptoms verses trial of tamsulosin. Previous workup has included a retroperitoneal ultrasound noting bilateral kidneys with no calculi, lesions, and or hydronephrosis noted. The bladder is well distended and normal. Bilateral ureteral jets are demonstrated. Pre void bladder volume is approximately 300 mL. Postvoid bladder volumes approximately 25 mL. Prostate is enlarged and volume of approximately 66 mL. He otherwise denies incontinence, hematuria, dysuria, foul smelling urine, flank pain, fever, and or chills. In office urinalysis results reviewed with the patient today. PVR 28 mLs. He reports adequate erections with taking 5 mg of Cialis as needed. He otherwise denies any other issues or concerns at this time. PSAs: 10/25 2.9, 05/26 1.1 [facility] Medical History History of CVA (cerebrovascular accident) (~11/2019) Personal history of nicotine dependence Sleep apnea COVID-19 vaccine series completed GERD (gastroesophageal reflux disease) Elevated cholesterol Surgical History History of umbilical hernia repair History of excision of mass History of shoulder surgery History of esophagogastroduodenoscopy (EGD) History of colonoscopy Family History Father Prostate cancer Social History Are you a primary career placement specialist to a significant other at home: No Do you presently have visiting nurse or other home services: No Alcohol intake: never Patient Tobacco Use Status: Former Tobacco user Quit Date: 2019 Tobacco use type: Cigarette Years Smoked: (onset 18yo, 1ppd x 41yrs, 40pyh - quit 12/01/2019) Review of Systems Const Reports as per HPI Eyes Reports no additional complaints ENT Reports no additional complaints Card Reports as per HPI Resp Reports as per HPI GI Reports as per HPI Reports as per HPI Musc Reports no additional complaints Neuro Reports as per HPI Psych Reports no additional complaints Endo Reports no additional complaints Marvin/Lymph Reports no additional complaints Aller/Immun Reports no additional complaints Physical Exam Const General: cooperative, healthy appearing, comfortable, no acute distress, well developed, alert and awake Orientation/consciousness: patient oriented x3 Limitations: no limitations HEENT Head: Yes normal to inspection, Yes normocephalic and Yes atraumatic Ears: hearing grossly normal bilaterally Eyes General: appearance normal, both eyes and all related structures Neck Neck: Yes normal visual inspection and Yes trachea midline Chest Chest palpation & inspection: normal inspection of the chest Resp Effort & Inspection: normal respiratory effort and able to speak in complete sentences Cardio Rate: regular rate GI Inspection: Yes normal to inspection General: Yes no CVA tenderness Back/Spine/Pelvis Back: no CVA tenderness Skin General skin exam: no rashes or lesions noted Neuro General: patient oriented x3 Extrem General: Yes normal to inspection Psych Appearance: grossly normal and well kempt Mental Status: mental status grossly normal Speech and movement: Normal speech and movement present and Clear speech present Affect: normal affect Attitude: cooperative Thought process: Normal thought process present Thought content: Normal thought content present Insight: Fair insight present (Psych) Judgement: Fair judgement present (Psych) Results AMB Urinalysis, Automated UA Leukoctes 125 Nigel/uL Last Edit by Elmo Eilzalde on 07/31/23 10:57 UA Nitrite Negative Last Edit by Elmo Elizalde on 07/31/23 10:57 UA Urobilinogen 0.2 mg/dL Last Edit by Elmo Elizalde on 07/31/23 10:57 UA Protein 15 mg/dL Last Edit by Elmo Elizalde on 07/31/23 10:57 UA pH 5.0 Last Edit by Elmo Elizalde on 07/31/23 10:57 UA Blood 0 David/uL Last Edit by Elmo Elizalde on 07/31/23 10:57 UA Specific [place] 1.025 Last Edit by Elmo Elizalde on 07/31/23 10:57 UA Ketone Negative Last Edit by Elmo Elizalde on 07/31/23 10:57 UA Bilirubin 0 mg/dL Last Edit by Elmo Elizalde on 07/31/23 10:57 UA Glucose 0 mg/dL Last Edit by Elmo Elizalde on 07/31/23 10:57 Results Reviewed Results Reviewed: Laboratory Last Values Urine pH (Auto) 5.0 07/31/23 10:21 Specific [place] (Auto) 1.025 07/31/23 10:21 Urine Protein (Auto) 15 mg/dL 07/31/23 10:21 Glucose (UA)(Auto) 0 mg/dL 07/31/23 10:21 Urine Ketones (Auto) Negative 07/31/23 10:21 Urine Blood (Auto) 0 David/uL 07/31/23 10:21 Urine Nitrite (Auto) Negative 07/31/23 10:21 Urine Bilirubin (Auto) 0 mg/dL 07/31/23 10:21 Urine Urobilinogen (Auto) 0.2 mg/dL 07/31/23 10:21 Leukocyte Esterase (Auto) 125 Nigel/uL 07/31/23 10:21 Assessment & Plan Assessment & Plan (1) Enlarged prostate: Code(s): N40.0 - Benign prostatic hyperplasia without lower urinary tract symptoms Category: Medical (2) Erectile dysfunction: Code(s): N52.9 - Male erectile dysfunction, unspecified Category: Medical (3) History of urinary hesitancy: Code(s): Z87.898 - Personal history of other specified conditions Category: Medical (4) Weak urinary stream: Code(s): R39.12 - Poor urinary stream Category: Medical (5) Lower urinary tract symptoms: Code(s): R39.9 - Unspecified symptoms and signs involving the genitourinary system Category: Medical Plan In office urinalysis results reviewed with the patient today; as noted above. PVR 28 mLs. Recent PSA results reviewed with the patient today. Continue finasteride; Sunday. Discussed daily dosing of tadalafil to help with lower urinary tract symptoms verses trial of flomax. Start Flomax as discussed and prescribed. Discussed attempting to sit to void to relax pelvis. Discussed possible near future in office cystoscopy for further assessment evaluation if symptoms persist and/or worsen. Discussed, educated, and stressed the importance of drinking water daily pH 5.0. Follow-up in 1-3 months with PVR; or sooner with any issues, concerns, and or questions. Orders: Orders AMB Urinalysis Automated Today Z13.9 - Encounter for screening, unspecified Medications: New tamsulosin 0.4 mg PO BEDTIME 30 days 30 caps 1RF N40.1 - Benign prostatic hyperplasia with lower urinary tract symptoms, R35.1 - Nocturia Changed From tadalafil (Cialis) BIN N Group [facility] [id number] 5 mg PO DAILY 30 days 90 tabs 0RF sexual activity To tadalafil (Cialis) [id number] [facility] [id number] Member [id number] 5 mg PO DAILY 30 days 90 tabs 0RF sexual activity From finasteride 5 mg PO DAILY 90 days 90 tabs 3RF N13.8 - Other obstructive and reflux uropathy, N40.1 - Benign prostatic hyperplasia with lower urinary tract symptoms, R33.9 - Retention of urine, unspecified To finasteride Take Sunday 5 mg PO .MWF 90 days 45 tabs 3RF N13.8 - Other obstructive and reflux uropathy, N40.1 - Benign prostatic hyperplasia with lower urinary tract symptoms, R33.9 - Retention of urine, unspecified Patient Instructions: The patient had an opportunity to ask questions regarding the treatment plan. All questions were answered. Physical exam, labs, and imaging were discussed and reviewed in detail. As well as risks, benefits, and discussion of treatment choices. No major barriers to understanding were identified. The patient expressed understanding and agreement with the above treatment plan. The patient was made aware they should contact our office by phone for worsening of their current condition, the appearance of new symptoms, or with any questions or concerns. Compliance is encouraged with any medications and follow up testing that is ordered. It is a privilege to be allowed the opportunity to participate in? your urological care.? Again, if you have any questions or concerns If you have any questions or concerns please do not hesitate to contact me. The office is [phone]. This note is constructed using voice recognition software. While every effort has been made to ensure accuracy nonprofit manager errors may have been included. Yours sincerely, HILTON Calvin Coding Level of Care Code Est Pt Level 4 (57129) Diagnoses Enlarged prostate N40.0 Erectile dysfunction N52.9 History of urinary hesitancy Z87.898 Weak urinary stream R39.12 Lower urinary tract symptoms R39.9
== END 2023-07-31 11:08 | disposition home or self-care (01) ==
PROVIDERS: PCP Internal Medicine Geriatric Medicine; Visit Provider Nurse Practitioner Family
DX: N40.0 Benign prostatic hyperplasia without lower urinary tract symptoms (principal); N52.9 Male erectile dysfunction, unspecified; Z87.898 Personal history of other specified conditions; R39.12 Poor urinary stream; R39.9 Unspecified symptoms and signs involving the genitourinary system; Z13.9 Encounter for screening, unspecified
CPT/HCPCS: 99214

== ENCOUNTER 2023-10-30 10:32 | Outpatient (AMB) | payer OTHER, SELFPAY ==
--- NOTE | 2023-10-30 10:48 | MHC.OFFVIS ---
Intake Visit Reasons: 3m/PVR Intake Note: Patient presents today foe follow up on: enlarged prostate, LUTS, erectile dysfunction Urology Medications: Tadalafil, Finasteride, Tamsulosin Blood Thinner: Clopidogrel PVR: 10ml's Bulldozer Engineer Required: No Accompanied by: Self / Same As Patient Allergies No Known Allergies Allergy (Verified 10/30/23 11:39) Medication List - Last Reconciled 10/30/23 by HILTON Calvin clopidogrel 75 mg PO DAILY finasteride 5 mg PO .MWF 90 days losartan 25 mg PO DAILY pantoprazole 40 mg PO DAILY rosuvastatin 20 mg PO BEDTIME tadalafil (Cialis) 5 mg PO DAILY 30 days tamsulosin 0.4 mg PO BEDTIME 30 days HPI Comments Details: Migel is a 63-year-old male patient of Dr. Schaeffer was accompanied by significant other at today's office visit. He has a past medical history of nicotine dependence quit in 2019, hypercholesteremia, GERD, CVA, and sleep apnea. He presents to the office today for follow-up of his lower urinary tract symptoms and erectile dysfunction. In discussion with the patient today reports to be doing and feeling well. He reports compliance with urological medications as prescribed. He reports since his last office visit here approximately 3 months ago he continues to experience weak urinary stream. He reports feeling initially upon initiation of Flomax urinary symptoms improved however feels this has since changed. Previous workup has included a retroperitoneal ultrasound 06/25 noting bilateral kidneys with no calculi, lesions, and or hydronephrosis noted. The bladder is well distended and normal. Bilateral ureteral jets are demonstrated. Pre void bladder volume is approximately 300 mL. Postvoid bladder volumes approximately 25 mL. Prostate is enlarged and volume of approximately 66 mL. He otherwise denies incontinence, hematuria, dysuria, foul smelling urine, flank pain, fever, and or chills. In office urinalysis results reviewed with the patient today. PVR 10 mLs. He reports adequate erections with taking 5 mg of Cialis as needed. He otherwise denies any other issues or concerns at this time. PSAs: 10/25 2.9, 05/26 1.1 [facility] Medical History History of CVA (cerebrovascular accident) (~11/2019) Personal history of nicotine dependence Sleep apnea COVID-19 vaccine series completed GERD (gastroesophageal reflux disease) Elevated cholesterol Surgical History History of umbilical hernia repair History of excision of mass History of shoulder surgery History of esophagogastroduodenoscopy (EGD) History of colonoscopy Family History Father Prostate cancer Social History Are you a primary primary care md to a significant other at home: No Do you presently have visiting nurse or other home services: No Alcohol intake: never Patient Tobacco Use Status: Former Tobacco user Tobacco use type: Cigarette Years Smoked: (onset 18yo, 1ppd x 41yrs, 40pyh - quit 12/01/2019) Review of Systems Const Reports as per HPI Eyes Reports no additional complaints ENT Reports no additional complaints Card Reports as per HPI Resp Reports as per HPI GI Reports as per HPI Reports as per HPI Musc Reports no additional complaints Neuro Reports as per HPI Psych Reports no additional complaints Endo Reports no additional complaints Marvin/Lymph Reports no additional complaints Aller/Immun Reports no additional complaints Physical Exam Const General: cooperative, healthy appearing, comfortable, no acute distress, well developed, alert and awake Orientation/consciousness: patient oriented x3 Limitations: no limitations HEENT Head: Yes normal to inspection, Yes normocephalic and Yes atraumatic Ears: hearing grossly normal bilaterally Eyes General: appearance normal, both eyes and all related structures Neck Neck: Yes normal visual inspection and Yes trachea midline Chest Chest palpation & inspection: normal inspection of the chest Resp Effort & Inspection: normal respiratory effort and able to speak in complete sentences Cardio Rate: regular rate GI Inspection: Yes normal to inspection General: Yes no CVA tenderness Back/Spine/Pelvis Back: no CVA tenderness Skin General skin exam: no rashes or lesions noted Neuro General: patient oriented x3 Extrem General: Yes normal to inspection Psych Appearance: grossly normal and well kempt Mental Status: mental status grossly normal Speech and movement: Normal speech and movement present and Clear speech present Affect: normal affect Attitude: cooperative Thought process: Normal thought process present Thought content: Normal thought content present Insight: Fair insight present (Psych) Judgement: Fair judgement present (Psych) Office Procedures Post Void Residual Post Residual Void Post Void Residual (PVR): 10 51885-Qiky Void Residual by ultrasound Results AMB Urinalysis, Automated UA Leukoctes 0 Nigel/uL Last Edit by Elmo Elizalde on 10/30/23 11:06 UA Nitrite Negative Last Edit by Elmo Elizalde on 10/30/23 11:06 UA Urobilinogen 0.2 mg/dL Last Edit by Elmo Elizalde on 10/30/23 11:06 UA Protein 15 mg/dL Last Edit by Elmo Elizalde on 10/30/23 11:06 UA pH 6.0 Last Edit by Elmo Elizalde on 10/30/23 11:06 UA Blood 0 David/uL Last Edit by Elmo Elizalde on 10/30/23 11:06 UA Specific [place] 1.025 Last Edit by Elmo Elizalde on 10/30/23 11:06 UA Ketone Negative Last Edit by Elmo Elizalde on 10/30/23 11:06 UA Bilirubin 0 mg/dL Last Edit by Elmo Elizalde on 10/30/23 11:06 UA Glucose 0 mg/dL Last Edit by Elmo Elizalde on 10/30/23 11:06 Results Reviewed Results Reviewed: Laboratory Last Values Urine pH (Auto) 6.0 10/30/23 11:05 Specific [place] (Auto) 1.025 10/30/23 11:05 Urine Protein (Auto) 15 mg/dL 10/30/23 11:05 Glucose (UA)(Auto) 0 mg/dL 10/30/23 11:05 Urine Ketones (Auto) Negative 10/30/23 11:05 Urine Blood (Auto) 0 David/uL 10/30/23 11:05 Urine Nitrite (Auto) Negative 10/30/23 11:05 Urine Bilirubin (Auto) 0 mg/dL 10/30/23 11:05 Urine Urobilinogen (Auto) 0.2 mg/dL 10/30/23 11:05 Leukocyte Esterase (Auto) 0 Nigel/uL 10/30/23 11:05 Assessment & Plan Assessment & Plan (1) Lower urinary tract symptoms: Code(s): R39.9 - Unspecified symptoms and signs involving the genitourinary system Category: Medical (2) Weak urinary stream: Code(s): R39.12 - Poor urinary stream Category: Medical (3) History of urinary hesitancy: Code(s): Z87.898 - Personal history of other specified conditions Category: Medical (4) Enlarged prostate: Code(s): N40.0 - Benign prostatic hyperplasia without lower urinary tract symptoms Category: Medical (5) Erectile dysfunction: Code(s): N52.9 - Male erectile dysfunction, unspecified Category: Medical (6) Urinary frequency: Code(s): R35.0 - Frequency of micturition Category: Medical Plan In office urinalysis results reviewed with the patient today; as noted above. PVR 10 mL. Discussed increasing Flomax to 2 capsules per day verses trial of terazosin and or doxazosin. Will increase Flomax to 2 capsules per day as discussed. Patient discusses his reluctancy to taking medications and is enquiring possible surgical intervention. Will schedule for in office cystoscopy for further assessment evaluation. Follow-up per doctor's orders; or sooner with any issues, concerns, and or questions. Orders: Orders AMB Post Void Residual by ultrasound Today R39.9 - Unspecified symptoms and signs involving the genitourinary system AMB Urinalysis Automated Today Z13.9 - Encounter for screening, unspecified Medications: Changed From tamsulosin 0.4 mg PO BEDTIME 30 days 30 caps 1RF N40.1 - Benign prostatic hyperplasia with lower urinary tract symptoms, R35.1 - Nocturia To tamsulosin 0.8 mg (2 x 0.4 mg) PO BEDTIME 90 days 180 caps 1RF N40.1 - Benign prostatic hyperplasia with lower urinary tract symptoms, R35.1 - Nocturia Patient Instructions: The patient had an opportunity to ask questions regarding the treatment plan. All questions were answered. Physical exam, labs, and imaging were discussed and reviewed in detail. As well as risks, benefits, and discussion of treatment choices. No major barriers to understanding were identified. The patient expressed understanding and agreement with the above treatment plan. The patient was made aware they should contact our office by phone for worsening of their current condition, the appearance of new symptoms, or with any questions or concerns. Compliance is encouraged with any medications and follow up testing that is ordered. It is a privilege to be allowed the opportunity to participate in? your urological care.? Again, if you have any questions or concerns If you have any questions or concerns please do not hesitate to contact me. The office is [phone]. This note is constructed using voice recognition software. While every effort has been made to ensure accuracy skilled nursing facility counselor errors may have been included. Yours sincerely, LIZ Calvin- Coding Level of Care Code Est Pt Level 3 (60585) Diagnoses Lower urinary tract symptoms R39.9 Weak urinary stream R39.12 History of urinary hesitancy Z87.898 Enlarged prostate N40.0 Erectile dysfunction N52.9 Urinary frequency R35.0 CPT Codes Post Residual Void - PVR CPT Code: 52277-Cqmw Void Residual by ultrasound ([id number])
== END 2023-10-30 11:23 | disposition home or self-care (01) ==
PROVIDERS: PCP Internal Medicine Geriatric Medicine; Visit Provider Nurse Practitioner Family
DX: R39.9 Unspecified symptoms and signs involving the genitourinary system (principal); R39.12 Poor urinary stream; Z87.898 Personal history of other specified conditions; N40.0 Benign prostatic hyperplasia without lower urinary tract symptoms; N52.9 Male erectile dysfunction, unspecified; R35.0 Frequency of micturition; Z13.9 Encounter for screening, unspecified
CPT/HCPCS: 99213

== ENCOUNTER → 2023-10-30 10:32 | Outpatient (BNVA) | payer OTHER, SELFPAY | PROVIDERS: PCP Internal Medicine Geriatric Medicine; Visit Provider Nurse Practitioner Family | DX: N40.1 Benign prostatic hyperplasia with lower urinary tract symptoms (principal); N52.9 Male erectile dysfunction, unspecified; R39.9 Unspecified symptoms and signs involving the genitourinary system; R39.12 Poor urinary stream; R35.0 Frequency of micturition; R35.1 Nocturia; Z86.73 Personal history of transient ischemic attack (TIA), and cerebral infarction without residual deficits; Z87.898 Personal history of other specified conditions | CPT/HCPCS: 51798; 81003; 99212 ==

== ENCOUNTER 2023-12-11 09:43 | Outpatient (AMB) | payer OTHER, SELFPAY ==
--- NOTE | 2023-12-11 10:11 | MHC.OFFVIS ---
Intake Visit Reasons: Cystoscopy(Enlarged Prostate) Intake Note: Patient is Present for Cystoscopy Urology Med: Finasteride, Tadalafil, Tamsulosin Antibiotic Allergy: None Blood Thinner: Plavix(Clopidogrel) Patient reports that he is taking all medication that was last prescribed by Kami Lemus NP at his last visit but was informed to cut down on Finasteride so he has been taking Finasteride on and off URO- G Disposable Cystoscope lot: [id number] exp: 06/13/2026 Biochemist Required: No Accompanied by: Self / Same As Patient Allergies No Known Allergies Allergy (Verified 12/11/23 10:16) HPI Comments Details: Migel is a pleasant male. He is a patient of Dr. Schaeffer. He is seen for the following conditions - lower urinary tract symptoms - erectile dysfunction Here for check cystoscopy Medium-sized prostate Small median lobe Would like to continue with Flomax Six-month follow-up Discussed GreenLight Lower urinary tract symptoms Predominantly weakness of stream Prior trial of Flomax On finasteride medical Sunday, Sunday Renal ultrasound notes no calculi, low postvoid residual PSA 10/25 2.9, 05/26 1.1 Erectile dysfunction Responds to Cialis 5 mg daily PFSH Medical History BPH (benign prostatic hyperplasia) History of CVA (cerebrovascular accident) (~11/2019) Personal history of nicotine dependence Sleep apnea COVID-19 vaccine series completed GERD (gastroesophageal reflux disease) Elevated cholesterol Surgical History History of umbilical hernia repair History of excision of mass History of shoulder surgery History of esophagogastroduodenoscopy (EGD) History of colonoscopy Family History Father Prostate cancer Social History Are you a primary healthcare interpreter to a significant other at home: No Do you presently have visiting nurse or other home services: No Alcohol intake: never Patient Tobacco Use Status: Former Tobacco user Tobacco use type: Cigarette Years Smoked: (onset 18yo, 1ppd x 41yrs, 40pyh - quit 12/01/2019) Review of Systems Const Denies chills and Denies fever(s) Card Reports no additional complaints and Denies syncope Resp Denies cough GI Denies abdominal pain and Denies heartburn Reports as per HPI and Denies change in libido Neuro Denies syncope Psych Denies change in libido Endo Denies change in libido Physical Exam Const General: cooperative, healthy appearing, comfortable and no acute distress Orientation/consciousness: patient oriented x3 HEENT Face and sinus: Yes normal facial exam Mouth: moist mucous membranes Neck Neck: Yes normal visual inspection, Yes full ROM and Yes trachea midline Chest Chest palpation & inspection: normal inspection of the chest Resp Effort & Inspection: normal respiratory effort, able to speak in complete sentences and no respiratory distress GI Inspection: Yes normal to inspection Back/Spine/Pelvis Cervical Spine: normal cervical lordosis Thoracic/Lumbar Spine: thoracic and lumbar spine normal to inspection Skin General skin exam: no rashes or lesions noted Neuro General: patient oriented x3, gait normal, tone normal and moves all extremities Extrem General: Yes normal to inspection and Yes capillary refill normal Office Procedures Cystoscopy Consent Discussed risk and benefit or proposed procedure with the patient. Information consent for procedure given to the patient. Discussed technical aspects, risks, benefits and alternatives in full. Addressed all of the patient's questions and concerns regarding the procedure. The patient demonstrated knowledge and understanding. They wish to proceed with this procedure. Preparation The patient was prepped in the usual manner. A proj engineer was present and in the room. Genitalia was prepped with betadine solution in a sterile manner. Lidocaine Jelly 2% was placed into the urethra and 16Fr flexible Olympus cystoscope was inserted into the meatus after adequate lubrication. Procedure Cystoscopy performed using a disposable Urovue digital 16 Thai cystoscope. Meatus circumcised Urethra anterior and posterior urethra normal Prostatic Urethra median lobe Bladder examination with retroflexion of cystoscope Bladder Orifices normal shape and position Bladder Capacity normal Trabeculations none Cellule Formation - Diverticulum Formation - Mucosal Erythema - Bladder Tumor - [id number] DISPOSABLE SCOPE URO-G FLEXIBLE SCOPE Procedure code (CPT) selection complete Office Meds lidocaine HCl 2 % mucosal jelly in applicator Performing Provider: Timur Min MD [place] [facility] [place] [facility] Administered by: Carlitos Huffman RN on 12/11/23 10:30 Dose Route Admin Location Dispensed Lot Number Expiration Date NDC Dietetic Intern 10 mL intra-urethral 10 mL nitrofurantoin monohydrate/macrocrystals 100 mg capsule Performing Provider: Timur Min MD [place]forming [place] [facility] [place] [facility] Administered by: Carlitos Huffman RN on 12/11/23 10:30 Dose Route Admin Location Dispensed Lot Number Expiration Date NDC Dietetic Intern 100 mg PO 1 cap naproxen 500 mg tablet Performing Provider: Timur Min MD [place]forming [place] [facility] [place] [facility] Administered by: Carlitos Huffman RN on 12/11/23 10:30 Dose Route Admin Location Dispensed Lot Number Expiration Date NDC Dietetic Intern 500 mg PO 1 tab Results AMB Urinalysis, Automated UA Leukoctes 0 Nigel/uL Last Edit by Monalisa Kaplan Nano on 12/11/23 10:25 UA Nitrite Negative Last Edit by Monalisa Kaplan ON LICENSE OF [facility] on 12/11/23 10:25 UA Urobilinogen 0.2 mg/dL Last Edit by Monalisa Kaplan ON LICENSE OF [facility] on 12/11/23 10:25 UA Protein 15 mg/dL Last Edit by Monalisa Kaplan ON LICENSE OF [facility] on 12/11/23 10:25 UA pH 5.0 Last Edit by Monalisa Kaplan ON LICENSE OF [facility] on 12/11/23 10:25 UA Blood 0 David/uL Last Edit by Monalisa Kaplan ON LICENSE OF [facility] on 12/11/23 10:25 UA Specific [place] 1.025 Last Edit by Monalisa Kaplan A on 12/11/23 10:25 UA Ketone Negative Last Edit by Monalisa Kaplan ON LICENSE OF [facility] on 12/11/23 10:25 UA Bilirubin 0 mg/dL Last Edit by Monalisa Kaplan A on 12/11/23 10:25 UA Glucose 0 mg/dL Last Edit by Monalisa Kaplan ON LICENSE OF [facility] on 12/11/23 10:25 Results Reviewed Results Reviewed: Laboratory Last Values Urine pH (Auto) 5.0 12/11/23 10:18 Specific [place] (Auto) 1.025 12/11/23 10:18 Urine Protein (Auto) 15 mg/dL 12/11/23 10:18 Glucose (UA)(Auto) 0 mg/dL 12/11/23 10:18 Urine Ketones (Auto) Negative 12/11/23 10:18 Urine Blood (Auto) 0 David/uL 12/11/23 10:18 Urine Nitrite (Auto) Negative 12/11/23 10:18 Urine Bilirubin (Auto) 0 mg/dL 12/11/23 10:18 Urine Urobilinogen (Auto) 0.2 mg/dL 12/11/23 10:18 Leukocyte Esterase (Auto) 0 Nigel/uL 12/11/23 10:18 Assessment & Plan Assessment & Plan (1) Lower urinary tract symptoms: Code(s): R39.9 - Unspecified symptoms and signs involving the genitourinary system Category: Medical (2) BPH (benign prostatic hyperplasia): Code(s): N40.0 - Benign prostatic hyperplasia without lower urinary tract symptoms Category: Medical Plan Six-month follow-up Orders: Orders AMB Cystoscopy Today N40.0 - Benign prostatic hyperplasia without lower urinary tract symptoms AMB Urinalysis Automated Today N40.0 - Benign prostatic hyperplasia without lower urinary tract symptoms, Z13.9 - Encounter for screening, unspecified Patient Instructions: Imaging studies, laboratory and physical exam results were discussed and reviewed in detail. No major barriers to patient understanding were identified. An opportunity to ask questions regarding the treatment plan was provided. All questions were answered. The patient expressed understanding and agreement with the above treatment plan. The patient is aware they should contact our office by phone for worsening of their current condition or the appearance of new urologic symptoms. Compliance is encouraged with any medications and followup testing that is ordered. It is a privilege to participate in the urologic care of your patient. If you have any questions or concerns regarding treatment for the above conditions, or other urologic issues, please do not hesitate to contact me. The office telephone contact is [phone]. This note is constructed using voice recognition software. While every effort has been made to ensure accuracy business objects report developer errors may have been included. Yours sincerely, Dr Timur Min MD, [facility] - Urology Providers of Expert, Compassionate Care for the Genitourinary System Coding Level of Care Code Est Pt Level 3 (33480) Diagnoses Lower urinary tract symptoms R39.9 BPH (benign prostatic hyperplasia) N40.0 CPT Codes Cystoscopy - CPT: 78171-[id number] ([id number])
== END 2023-12-11 10:45 | disposition home or self-care (01) ==
PROVIDERS: PCP Internal Medicine Geriatric Medicine; Visit Provider Urology
DX: R39.9 Unspecified symptoms and signs involving the genitourinary system (principal); N40.0 Benign prostatic hyperplasia without lower urinary tract symptoms
CPT/HCPCS: 52000; 99213

== ENCOUNTER → 2023-12-11 09:43 | Outpatient (BNVA) | payer OTHER, SELFPAY | PROVIDERS: PCP Internal Medicine Geriatric Medicine; Visit Provider Urology | DX: R39.9 Unspecified symptoms and signs involving the genitourinary system (principal); N40.0 Benign prostatic hyperplasia without lower urinary tract symptoms | CPT/HCPCS: 52000; 81003; 99212 ==

== ENCOUNTER 2024-01-24 09:38 | Outpatient (REF) | payer OTHER, SELFPAY | END 2024-01-24 09:39 | disposition home or self-care (01) | LOC: HO.CT 09:38 | PROVIDERS: PCP Internal Medicine Geriatric Medicine; Visit Provider Physician Assistant Medical | DX: Z12.2 Encounter for screening for malignant neoplasm of respiratory organs (principal); Z87.891 Personal history of nicotine dependence | CPT/HCPCS: 71271 ==

== ENCOUNTER 2024-02-16 10:53 | Outpatient (REF) | payer OTHER, SELFPAY ==
--- OUTSIDE RECORDS SUMMARY | 2024-02-16 10:55 | XMS_ITS | Patient Health Record ---
Author Organization [facility] Address [address] [place] [address] Care Team Providers Care Rehabilitation Assistant Name Role Phone Name Roberto GRANADOS Primary Care Provider Davian Steward [phone] ALLERGIES No Known Allergies REASON FOR REFERRAL No Information MEDICATIONS Medication SIG (Take, Route, Frequency, Duration) Notes Start Date End Date Status Clopidogrel Bisulfate 75 MG TAKE 1 TABLE T BY MOUTH EVERY DAY Oral for 30 Active Pantoprazole Sodium 40 MG Oral for 30 Active Pravastatin Sodium 20 MG TAKE 1 TABLET B Y MOUTH EVERY DAY AT BEDTIME Oral for 30 Active IMMUNIZATIONS Vaccine Route Administration Date Status Comme nts Influenza Unknown 05/31/2021 Refused SOCIAL HISTORY Tobacco Use: Social History Observation Description Date Details (start date - stop date) Former Smoker NA - NA Sex Assigned At : Social History Observation Description Sex Assigned At Unknown Tobacco Use/Smoking Question Answer Notes Patient is a former smoker How long has it been since you last smoked? 1-5 years Alcohol Screen Question Answer Notes Did you have a drink containing alcohol in the p ast year? No Points 0 Interpretation Negative PROBLEMS Problem Type ICD Code Onset Dates Problem Status W/U Status Risk SNOMED Code Notes Problem Gastroesophageal reflux disease, unspecified whether esophagitis present (K21.9) Active confirmed 588196598 Problem Encounter for screening for malignant neoplasm of colon (Z12.11) Active confirmed 382686143 Problem Constipation, unspecified constipation type (K59.00) Active confirmed 62922843 Problem Abdominal bloating (R14.0) Active confirmed 852427051 Problem Diverticulosis of colon (K57.30) Active confirmed Diverticulosi s of colon (029969987) Problem Gastroesophageal reflux (K21.9) Active confirmed Esophageal reflux finding (931892437) PLAN OF TREATMENT Pending Test Test Name Order Date Pathology 06/22/2021 Future Test Test Name Order Date UPPER GI ENDOSCOPY 05/31/2021 COLONOSCOPY 05/31/2021 Insurance Providers Payer Name Payer Address Payer Phone Subscriber Number Group Number Insured Name Patient Relationship to Insured Coverage Start Date Coverage End Date [facility] [address] [place] [phone] [id number] MEÑO HARRIS Self - patient is the insured MEDICAL (GENERAL) HISTORY Medical History History ICD Code CVA with transient with right sided weak ness and speech in 2019 Hyperlipidemia Colonoscopy age 47 was negative Denies [place],DM,Lung disease,renal disease GERD Surgical History Surgery Date(Month/Year) Shoulder surgery left Umbilical hernia repair
[2024-02-16 11:01] LABS: MANUAL DIFF FLAG NO
[2024-02-16 11:40] LABS: Basophils Percent Auto 0.6 % (0-2); Eosinophils Absolute Auto 0.1 X10*3/uL (0.0-0.4); Eosinophils Percent Auto 2.2 % (0-4); Hematocrit 47.3 % (42.0-52.0); Imm Gran Abs Auto 0.02 X10*3/uL (0.00-0.03); Imm Gran Pct Auto 0.4 % (0.0-0.4); Lymphocytes Absolute Auto 1.7 X10*3/uL (1.2-4.9); Mean Corpuscular HGB Conc 33.8 g/dl (31.0-36.0); Mean Corpuscular Hemoglobin 28.9 pg (27.0-33.0); Mean Corpuscular Volume 85.5 fL (80.0-98.0); Mean Platelet Volume 10.1 fL (9.4-12.4); Monocytes Absolute Auto 0.6 X10*3/uL (0.1-1.2); Monocytes Percent Auto 10.6 % (2-11); Neutrophils Percent Auto 55.2 % (45-73); Platelet Count 168 X10*3/uL (160-400); Red Blood Count 5.53 X10*6/uL (4.60-5.80); Red Cell Distribution Width 13.2 % (11.0-16.0); White Blood Count 5.5 X10*3/uL (4.8-10.8)
[2024-02-16 12:29] LABS: Alanine Aminotransferase 35 U/L (0-40); Albumin Level 4.7 g/dL (3.5-5.0); Alkaline Phosphatase 85 U/L (39-117); Anion Gap 11 (12-20); Aspartate Amino Transferase 41 U/L (5-37); Bilirubin Total 0.8 mg/dL (0.0-1.0); Blood Urea Nitrogen 16 mg/dL (9-16); Calcium 9.5 mg/dL (8.4-10.2); Carbon Dioxide 27 mmol/L (22-29); Chloride 108 mmol/L (96-108); Cholesterol 175 mg/dL (<200); Estimated Glomerular Filt Rate > 60; Glucose Random 101 mg/dL (60-115); HDL Cholesterol 33 mg/dL (>40); LDL Cholesterol Calculated 113 mg/dL (<100); Potassium 4.1 mmol/L (3.3-5.1); Sodium 142 mmol/L (135-145); Total Protein 7.5 g/dL (6.5-8.0); Triglycerides 146 mg/dL (<150)
== END 2024-02-16 10:54 | disposition home or self-care (01) ==
LOC: HO.LAB 10:53
PROVIDERS: PCP Internal Medicine Geriatric Medicine; Visit Provider Internal Medicine Geriatric Medicine
DX: I10 Essential (primary) hypertension (principal); Z86.73 Personal history of transient ischemic attack (TIA), and cerebral infarction without residual deficits; E78.2 Mixed hyperlipidemia
CPT/HCPCS: 36415; 80053; 80061; 85025

== ENCOUNTER 2024-06-11 10:36 | Outpatient (AMB) | payer OTHER, SELFPAY ==
--- NOTE | 2024-06-11 10:48 | MHC.OFFVIS ---
Intake Visit Reasons: 6m/PVR Intake Note: Patient is present for 6M/PVR Urology Medication: NONE Antibiotic Allergy:NONE Blood Thinner:NONE TODAY'S PVR: 59ML'S Candles Pourer Required: No Allergies No Known Allergies Allergy (Verified 06/11/24 10:49) HPI Comments Details: Migel is a pleasant male. He is a patient of Dr. Schaeffer. He is seen for the following conditions - lower urinary tract symptoms - erectile dysfunction Prior cystoscopy 12/26 Medium-sized prostate Small median lobe PVR follow-up Six-month follow-up Has been on Flomax Interested in GreenLight laser procedure Information provided And will schedule Lower urinary tract symptoms Predominantly weakness of stream Prior trial of Flomax On finasteride medical Sunday, Sunday Renal ultrasound notes no calculi, low postvoid residual Prior bladder ultrasound 65 g prostate with calcification PSA 10/25 2.9, 05/26 1.1 Erectile dysfunction Responds to Cialis 5 mg daily PFSH Medical History BPH (benign prostatic hyperplasia) History of CVA (cerebrovascular accident) (~11/2019) Personal history of nicotine dependence Sleep apnea COVID-19 vaccine series completed GERD (gastroesophageal reflux disease) Elevated cholesterol Surgical History History of umbilical hernia repair History of excision of mass History of shoulder surgery History of esophagogastroduodenoscopy (EGD) History of colonoscopy Family History Father Prostate cancer Social History Are you a primary pet care associate to a significant other at home: No Do you presently have visiting nurse or other home services: No Alcohol intake: never Patient Tobacco Use Status: Former Tobacco user Tobacco use type: Cigarette Years Smoked: (onset 18yo, 1ppd x 41yrs, 40pyh - quit 12/01/2019) Review of Systems Const Denies chills and Denies fever(s) Card Reports no additional complaints and Denies syncope Resp Denies cough GI Denies abdominal pain and Denies heartburn Reports as per HPI and Denies change in libido Neuro Denies syncope Psych Denies change in libido Endo Denies change in libido Physical Exam Const General: cooperative, healthy appearing, comfortable and no acute distress Orientation/consciousness: patient oriented x3 HEENT Face and sinus: Yes normal facial exam Mouth: moist mucous membranes Neck Neck: Yes normal visual inspection, Yes full ROM and Yes trachea midline Chest Chest palpation & inspection: normal inspection of the chest Resp Effort & Inspection: normal respiratory effort, able to speak in complete sentences and no respiratory distress GI Inspection: Yes normal to inspection Back/Spine/Pelvis Cervical Spine: normal cervical lordosis Thoracic/Lumbar Spine: thoracic and lumbar spine normal to inspection Skin General skin exam: no rashes or lesions noted Neuro General: patient oriented x3, gait normal, tone normal and moves all extremities Extrem General: Yes normal to inspection and Yes capillary refill normal Office Procedures Post Void Residual Post Residual Void Post Void Residual (PVR): 59 25070-Gmvm Void Residual by ultrasound Assessment & Plan Assessment & Plan (1) BPH (benign prostatic hyperplasia): Code(s): N40.0 - Benign prostatic hyperplasia without lower urinary tract symptoms Category: Medical (2) Urinary frequency: Code(s): R35.0 - Frequency of micturition Category: Medical Plan We discussed the nature of the decision and reasonable options for performing a prostate intervention. Interventions include TURP, GreenLight laser enucleation of the prostate, GreenLight laser ablation of the prostate, transurethral incision of the prostate, and I-Tend prostate procedure. Options such as medical therapy were discussed. The relative uncertainties and benefits related to each alternate procedure were adequately discussed. General surgical risks including, but not limited to, pain, bleeding, infection, myocardial infarction, pulmonary embolus, deep vein thrombosis and cerebrovascular accident which may result in further hospitalization were discussed. Full disclosure of the procedure as well as all major risks, benefits and complications were discussed including but not limited to damage to the urethra or bladder neck, recurrent BPH, retrograde ejaculation, bladder infection, urge, de berta frequency, incomplete emptying, dysuria, remote chance of erectile dysfunction, epididymitis, and meatal stenosis. The success rate of the procedure was discussed. Success of the procedure in the short-term does not necessarily guarantee that long-term success will be maintained. Suitable follow up will need to be maintained. The patient showed understanding of discussion. An opportunity was provided for questions to be answered and wishes to proceed with the following procedure. - GreenLight laser Orders: Orders AMB Urinalysis Automated Today Z13.9 - Encounter for screening, unspecified Patient Instructions: This note is constructed using voice recognition software. While every effort has been made to ensure accuracy decorator lighting fixtures errors may have been included. Imaging studies, laboratory and physical exam results were discussed and reviewed in detail. No major barriers to patient understanding were identified. An opportunity to ask questions regarding the treatment plan was provided. All questions were answered. The patient expressed understanding and agreement with the above treatment plan. The patient is aware they should contact our office by phone for worsening of their current condition or the appearance of new urologic symptoms. Compliance is encouraged with any medications and followup testing that is ordered. It is a privilege to participate in the urologic care of your patient. If you have any questions or concerns regarding treatment for the above conditions, or other urologic issues, please do not hesitate to contact me. The office telephone contact is [phone]. Sincerely, Dr Timur Min MD, [facility] - Urology Compassionate Specialist Care for the Genitourinary System Coding Level of Care Code Est Pt Level 4 (04043) Diagnoses BPH (benign prostatic hyperplasia) N40.0 Urinary frequency R35.0 CPT Codes Post Residual Void - PVR CPT Code: 63910-Npbe Void Residual by ultrasound ([id number])
--- OUTSIDE RECORDS SUMMARY | 2024-06-11 12:08 | XMS_ITS | Clinical Summary ---
Author Organization [employer] Address [address] [place] [address] 7[address] [place] [address] Care Team Providers Care Hang Gliding Instructor Name Role Phone Name, Roberto GRANADOS Primary Care Provider [phone] Allergies Active Allergy Reactions Criticality Noted Date Comments Atorvastatin 03/17/2020 Other reaction(s): Abdominal bloating Medications albuterol 108 (90 Base) MCG/ACT inhaler INHALE 2 PUFFS BY MOUTH EVERY 4 HOURS NEEDED FOR DIFFICULT BREATHING 05/31/19 22 Active Blood Pressure Monitoring (Omron 3 Series BP Monitor) device USE TO CHECK BLOOD PRESSURE EVERY DAY 10/28/19 22 Active docusate sodium (Colace) 100 MG capsule Take 100 mg by mouth 2 times daily. 12/31/19 22 Active tadalafil (Cialis) 5 MG tablet TAKE ONE TABLET BY MOUTH EVERY DAY FOR SEXUAL ACTIVITY 06/24/19 23 Active Diclofenac Sodium (Voltaren) 1 % gelIndications:Med ial epicondylitis of elbow, left Apply once a day to the affected skin 100 g 1 02/09/20 23 Active finasteride (Proscar) 5 MG tablet 07/31/19 24 Active tamsulosin (Flomax) 0.4 MG 24 hr capsule Take 0.4 mg by mouth at bedtime. 07/31/19 24 Active azelastine (Optivar) 0.05 % ophthalmic solutionIndication s:Allergic conjunctivitis of both eyes,Sciatic leg pain Administer 1 drop into both eyes 2 times daily. 6 mL 1 08/27/19 24 025 Active ibuprofen 800 MG tablet Take 1 tablet (800 mg) by mouth if needed each day for mild pain or moderate pain. 60 tablet 1 09/27/19 24 025 Active LORazepam (Ativan) 1 MG tablet Take 1 tablet (1 mg) by mouth See administration instructions for 1 day. Take 1 tab per month 30 to 60 minutes prior to blood draw. Do not drive after using the med 1 tablet 02/14/20 Active clopidogrel (Plavix) 75 MG tablet Take 1 tablet (75 mg) by mouth Once per day. 90 tablet 1 04/24/19 25 Active losartan (Cozaar) 50 MG tablet Take 1 tablet (50 mg) by mouth Once per day. 90 tablet 1 04/24/19 25 026 Active Icosapent Ethyl (Vascepa) 1 g capsule Take 2 capsules (2 g) by mouth with breakfast and with evening meal. 360 capsule 1 04/24/19 25 026 Active rosuvastatin (Crestor) 20 MG tablet TAKE 1 TABLET(20 MG) BY MOUTH IN THE MORNING 90 tablet 1 04/24/19 25 Active pantoprazole (ProtoNix) 40 MG EC tabletIndications: Gastroesophageal reflux disease, unspecified whether esophagitis present TAKE 1 TABLET(40 MG) BY MOUTH BEFORE BREAKFAST 90 tablet 1 05/09/19 25 Active Active Problems Problem Noted Date Diagnosed Date Elevated triglycerides with high cholesterol Encounter for screening for malignant neoplasm o f colon 10/20/2022 Former smoker 07/26/2022 Obesity 07/26/2022 Diverticulosis of colon 03/27/2022 Gastro-esophageal reflux disease without esophag itis 03/27/2022 Hypertensive disorder 03/27/2022 Internal hemorrhoids 03/27/2022 Lacunar infarction 03/27/2022 Overview (04/24/2024): Severity: mild in 2019. Type of stroke is Ischemic (lacunar). Status of deficit is resolved. The risk factors include age > 50, family history, tobacco use. Medication(s) used: Clopidogrel. Testing include: Diagnostics - CT, CTA, Echocardiogram and MRI, sleep study. There are no associated symptoms. Additional information: Head CT/CTA and neck CTA negative, ECHO done earlier today reported as normal to him, MRI with 3mm left salazar radiata lacunar infarct and possible small vessel ischemic change. Sleep study done and normal. He has recovered fully(had R weakness/numbness). Chronic left shoulder pain 03/27/2022 Obstructive sleep apnea syndrome 12/31/2019 Needle phobia 10/17/2017 Wheezing 08/19/2015 Resolved Problems Problem Noted Date Diagnosed Date Resolved Date Abdominal bloating 10/20/2022 Transient ischemic attack 07/26/2022 Encounters Date Type Department Care Team Description 05/08/2024 Refill [facility] [address] [place] [address] Name, MD Roberto Gastroesophageal reflux disease, unspecified whether esophagitis present 04/24/2024 10:30 AM EST Office Visit [facility] [address] [place] [address] Name, MD Roberto Lacunar infarction (CMS/HCC) (Primary Dx); Seborrheic keratosis 04/17/2024 Travel from Last 3 Months Immunizations Name Administration Dates Next Due Influenza injectable quadriv alent preservative free 12/05/2019 Influenza, IIV3, injectable 01/19/2015, 3,01/17/2012 Pfizer Covid-19 Vaccine 12+ jamila-sucrose (Rodriguez Cap) 06/26/2020 Pneumococcal Polysaccharide PPSV23 06/14/2016 Tdap 02/08/2023,07/21/2008 Social History Tobacco Use Types Packs/Day Years Used Date Smoking Tobacco: Former Cigarettes Tobacco Cessation:Counseling Given: Not Answered Alcohol Use Standard Drinks/Week Comments Never 0 (1 standard drink = 0.6 oz pur e alcohol) Alcohol Answer Date Recorded Frequency of Alcohol Consumption Not on file 08/27/2023 Average Number of Drinks Not on file 024 Frequency of Binge Drinking Not on file 08/04 Score 0 08/27/2023 Depression Answer Date Recorded Patient Health Questionnaire-9 Score 0 04/24/2024 Patient Health Questionnaire-9 Score 0 04/24/2024 Last PHQ-9: Questionnaire Data Not on file 0 04/24/2024 Housing Stability Answer Date Recorded What is your housing situation today? I have robyn vega 05/14/[address] you li ve. Do you have problems with any of the following? None of the above 05/14/2023 Food Insecurity Answer Date Recorded Within the past 12 months, y ou worried that your food would run out before you got money to buy more: Never True 05/14/2023 Within the past 12 months,th e food you bought just didn't last and you didn't have enough money to get more: Never True 01/2024 Transportation Answer Date Recorded In the past 12 months, has l ack of transportation kept you from medical appts, meetings, work or from getting things needed for daily living? No 05/14/2023 Utilities Answer Date Recorded In the past 12 months, has t he electric, gas, oil or water company threatened to shut off services in your home? No 05/14/2023 Depression Answer Date Recorded Patient Health Questionnaire-2 Score 0 04/24/2024 Sex and Gender Information Value Date Recorded Sex Assigned at Male 01/02/2022 10:29 AM EDT Legal Sex Male 10:29 AM EDT Gender Identity Male 01/02/2022 10:29 AM EDT Sexual Orientation Straight 01/02/2022 10 :29 AM EDT Last Filed Vital Signs Vital Sign Reading Time Taken Comments Blood Pressure 134/85 04/24/2024 10:33 AM EST Pulse 72 04/24/2024 10:33 AM EST Temperature 36.5 ??C (97.7 ??F) 04/24/2024 10:[address] Respiratory Rate 21 04/24/2024 10:33 AM EST Oxygen Saturation 97% 04/24/2024 10:33 AM EST Inhaled Oxygen Concentration - - Weight 106 kg (234 lb) 04/24/2024 10:33 AM EST Height 177.8 cm (5' 10 ) 04/24/2024 10:33 AM EST Body Mass Index 33.58 04/24/2024 10:33 AM EST Plan of Treatment Upcoming Encounters Date Type Department Care Team (Late st Contact Info) Description 07/08/2024 9:00 AM EDT Office Visit [place] [facility] [address] [place] [address] Cornell Vasquez OD [address] [place] [address] Health Maintenance Due Date Last Done Comments CT Colonography 1962 FIT DNA/Cologuard 1962 FIT 1962 FOBT 1962 HIV Screening 1962 Sigmoidoscopy 1962 Zoster Vaccines (1 of 2) 2012 Pneumococcal Vaccine: 50+ Years (2 of 2 - PCV) 06/14/2017 06/14/2016 RSV Patients and Patients Aged 60 years or older (1 - Risk 60-74 years 1-dose series) 2022 COVID-19 Vaccine (3 - season) 2023 06/26/2020, 06/01/2020 Influenza Vaccine (#1) 2023 , 01/19/2015, 12/11/2012, Additional history exists SDOH Screening 05/13/2024 05/14/2023 Alcohol/Substance Use Screening 04/24/2025 04/24/2024 Depression Screening 04/24/2025 04/24/2024, 04/24/19 Tobacco Screening 04/24/2025 04/24/2024 Lipid Panel 02/15/2029 02/16/2024, 05/03, 10/25/2022, Additional history exists Colonoscopy 06/24/2031 06/23/2021 Colorectal Cancer Screening 06/24/2031 DTaP/Tdap/Td Vaccines (3 - Td or Tdap) 02/08/2033 02/08/2023, 07/21/2008 Hepatitis C Screening Completed 10/25/2017 HIB Vaccines Aged Out No longer eligi ble based on patient's age to complete this topic HPV Vaccines Aged Out No longer eligi ble based on patient's age to complete this topic Hepatitis A Vaccines Aged Out No long er eligible based on patient's age to complete this topic Hepatitis B Vaccines Aged Out No long er eligible based on patient's age to complete this topic IPV Vaccines Aged Out No longer eligi ble based on patient's age to complete this topic Meningococcal Vaccine Aged Out No mary john eligible based on patient's age to complete this topic RSV under 20 months Aged Out No longe r eligible based on patient's age to complete this topic Rotavirus Vaccines Aged Out No longer eligible based on patient's age to complete this topic Procedures Procedure Name Priority Date/Time Associated Diagnosis Comments LIPID PANEL, STANDARD Routine 02/16/2024 11:00 AM EST History of CVA (cerebrovascular accident) Combined hyperlipidemia Hypertension, unspecified type COLONOSCOPY Routine 06/23/2021 2:02 PM EDT HEPATITIS C ANTIBODY Routine 10/25/2017 from Last 3 Months or Most Recently Relevant to Health Maintenance Results * (ABNORMAL) Lipid Panel, Standard (02/16/2024 11:00 AM EST) Triglycerides 146 <150 mg/dL [facility] Comment:Desirable Triglyceri de: less than 150 mg/dLBorderline High Triglyceride 150-199 mg/dLHigh Triglyceride: 200-499 mg/dLVery High Triglyceride: greater than or equal to 5OO mg/dL Cholesterol 175 <200 mg/dL [facility] Comment:Desirable Cholestero l: less than 200 mg/dLBorderline High Cholesterol: 200-239 mg/dLHigh Cholesterol: greater than 239 mg/dL LDL Cholesterol Calculated 113(H) <100 mg/dL [facility] Comment:Desirable LDL: less than 100 mg/dLNear Optimal/Above Optimal LDL: 110- 129 mg/dLBorderline High LDL: 130-159 mg/dLHigh LDL: 160-189 mg/dLVery High LDL: greater than or equal to 190 mg/dL HDL Cholesterol 33(L) >40 mg/dL [facility] Comment:Desirable HDL: great er than 40 mg/dL Note: This HDL assay may give artificially low results in patients with liver disease. Blood Venous blood specimen / Unknown 02/16/2024 11:00 AM EST 02/16/2024 11:00 AM EST us Roberto Schaeffer MD LAB BLOOD ORDERABLES Final Resul t [facility] [address] [place] [address] [phone] * Colonoscopy (06/23/2021 2:02 PM EDT) Colonoscopy Normal Normal Narrative Mary Lira - 06/23/2021 2:02 PM EDT Recommended 10 year follow up us Historical Provider HEALTH MAINTENANCE Final Result * Hepatitis C Antibody (10/25/2017) Hepatitis C Antibody Nonreactive Blood Roberto Name HEALTH MAINTENANCE Final Result from Last 3 Months or Most Recently Relevant to Health Maintenance Insurance [facility] Care Teams Hang Gliding Instructor Relationship Specialty Start Date End Date Name, MD Roberto [address] [place] [id number] PCP - General Family Medicine 08/19/15
--- OUTSIDE RECORDS SUMMARY | 2024-06-11 12:08 | XMS_ITS | Patient Health Record ---
Author Organization [facility] Address [address] [place] [address] Care Team Providers Care Fast Food Team Member Name Role Phone Name Roberto GRANADOS Primary Care Provider Davian Steward [phone] Allergies No Known Allergies Reason For Referral No Information Medications Medication SIG (Take, Route, Frequency, Duration) Notes Start Date End Date Status Clopidogrel Bisulfate 75 MG TAKE 1 TABLE T BY MOUTH EVERY DAY Oral for 30 Active Pantoprazole Sodium 40 MG Oral for 30 Active Pravastatin Sodium 20 MG TAKE 1 TABLET B Y MOUTH EVERY DAY AT BEDTIME Oral for 30 Active Immunizations Vaccine Route Administration Date Status Comme nts Influenza Unknown 05/31/2021 Refused Social History Tobacco Use: Social History Observation Description Date Details (start date - stop date) Former Smoker NA - NA Tobacco Use/Smoking Question Answer Notes Patient is a former smoker How long has it been since you last smoked? 1-5 years Alcohol Screen Question Answer Notes Did you have a drink containing alcohol in the p ast year? No Points 0 Interpretation Negative Section Notes: Nonsmoker; no alcohol Problems Problem Type SNOMED Code ICD Code Onset Dates Problem Status W/U Status Risk Notes Problem 609707708 Encounter for screening for malignant neoplasm of colon (Z12.11) Active confirmed Problem 833954859 Abdominal bloati ng (R14.0) Active confirmed Problem 20816768 Constipation, unspecified constipation type (K59.00) Active confirmed Problem Esophageal reflux finding (339103569) Gastroesophageal reflux (K21.9) Active confirmed Problem Diverticulosis of colon (466418065) Diverticulosis of colon (K57.30) Active confirmed Problem 808744985 Gastroesophageal reflux disease, unspecified whether esophagitis present (K21.9) Active confirmed Plan Of Treatment Pending Test Test Name Order Date Pathology 06/22/2021 Future Test Test Name Order Date UPPER GI ENDOSCOPY 05/31/2021 COLONOSCOPY 05/31/2021 Insurance Providers Payer Name Payer Address Payer Phone Subscriber Number Group Number Insured Name Patient Relationship to Insured Coverage Start Date Coverage End Date [facility] [address] [place] [phone] [id number] MEÑO HARRIS Self - patient is the insured Medical (General) History Medical History History ICD Code CVA with transient with right sided weak ness and speech in 2019 Hyperlipidemia Colonoscopy age 47 was negative Denies MT,DM,Lung disease,renal disease GERD Surgical History Surgery Date(Month/Year) Shoulder surgery left Umbilical hernia repair
--- OUTSIDE RECORDS SUMMARY | 2024-06-11 12:08 | XMS_ITS | Encounter Summary ---
Author Organization [employer] Address [address] [place] [address] 7t [place] [address] Care Team Providers Care Insurance Agency Manager Name Role Phone Name, Roberto GRANADOS Primary Care Provider [phone] Reason for Visit * Reason Comments Med Refill Encounter Details Date Type Department Care Team ([facility] st Contact Info) Description 08/27/2023 Refill [facility] [address] [place], [place] [phone] Name, MD Roberto [address] [place] [address] Allergic conjunctivitis of both eyes; Sciatic leg pain Social History Tobacco Use Types Packs/Day Years Used Date Smoking Tobacco: Former Cigarettes Alcohol Use Standard Drinks/Week Comments Never 0 (1 standard drink = 0.6 oz pur e alcohol) Alcohol Answer Date Recorded Frequency of Alcohol Consumption Not on file 08/27/2023 Average Number of Drinks Not on file 024 Frequency of Binge Drinking Not on file 08/04 Score 0 08/27/2023 Depression Answer Date Recorded Patient Health Questionnaire-9 Score 0 05/14/2023 Patient Health Questionnaire-9 Score 0 05/14/2023 Last PHQ-9: Questionnaire Data Not on file 0 05/14/2023 Housing Stability Answer Date Recorded What is [...] Date Recorded Patient Health Questionnaire-2 Score 0 05/14/2023 Sex and Gender Information Value Date Recorded Sex Assigned at Male 01/02/2022 10:29 AM EDT Legal Sex Male 10:29 AM EDT Gender Identity Male 01/02/2022 10:29 AM EDT Sexual Orientation Straight 01/02/2022 10 :29 AM EDT documented as of this encounter Plan of Treatment Upcoming Encounters Date Type Department Care Team (Late st Contact Info) Description 07/08/2024 9:00 AM EDT Office Visit [place] [facility] [address] [place] [address] Cornell Vasquez OD [address] [place] [address] documented as of this encounter Visit Diagnoses Diagnosis Allergic conjunctivitis of both eyes Other chronic allergic conjunctivitis Sciatic leg pain documented in this encounter Additional Health Concerns Assessment Noted Time PHQ-9 Depression Total Score: 0 05/14/19 24 10:44 AM EDT documented as of this encounter Care Teams Insurance Agency Manager Relationship Specialty Start Date End Date Name, MD Roberto [address] [place] [address] PCP - General Family Medicine 08/19/15 documented as of this encounter
--- OUTSIDE RECORDS SUMMARY | 2024-06-11 12:09 | XMS_ITS | Encounter Summary ---
Author Organization [employer] Address [address] [place] [address] [address] [place] [address] Care Team Providers Care Wine Steward Name Role Phone Name, Roberto GRANADOS Primary Care Provider [phone] Encounter Details Date Type Department Care Team (Late Contact Info) Description 08/04/2022 Abstract [facility] [address] [place] [address] Name, MD Roberto [address] [place] [address] Social History Tobacco Use Types Packs/Day Years Used Date Smoking Tobacco: Former Cigarettes Alcohol Use Standard Drinks/Week Comments Never 0 (1 standard drink = 0.6 oz pur e alcohol) Depression Answer Date Recorded Patient Health Questionnaire-2 Score 0 03/27/2022 Sex and Gender Information Value Date Recorded Sex Assigned at Male 01/02/2022 10:29 AM EDT Legal Sex Male 10:29 AM EDT Gender Identity Male 01/02/2022 10:29 AM EDT Sexual Orientation Straight 01/02/2022 10 :29 AM EDT COVID-19 Exposure Response Date Recorded In the last 10 days, have yo u been in contact with someone who was confirmed or suspected to have Coronavirus/COVID-19? No / Unsure 07/26/2022 10:41 AM EDT documented as of this encounter Plan of Treatment Upcoming Encounters Date Type Department Care Team (Late st Contact Info) Description 07/08/2024 9:00 AM EDT Office Visit [place] [facility] [address] [place] [address] Cornell Vasquez, OD [address] [place], [place] [phone] documented as of this encounter Procedures Procedure Name Priority Date/Time Associated Diagnosis Comments COLONOSCOPY Routine 06/23/2021 2:02 PM EDT documented in this encounter Results * Colonoscopy (06/23/2021 2:02 PM EDT) Colonoscopy Normal Normal Narrative Mary Lira - 06/23/2021 2:02 PM EDT Recommended 10 year follow up Historical Provider HEALTH MAINTENANCE Final Result documented in this encounter Visit Diagnoses Not on filedocumented in this encounter Care Teams Wine Steward Relationship Specialty Start Date End Date Name, MD Roberto [address] [place] [address] PCP - General Family Medicine 08/19/15 documented as of this encounter
--- OUTSIDE RECORDS SUMMARY | 2024-06-11 12:09 | XMS_ITS | Encounter Summary ---
Author Organization [employer] Address [address] [facility] 7t [place] [address] Care Team Providers Care Photo Mask Processor Name Role Phone Name, Roberto GRANADOS Primary Care Provider [phone] Reason for Visit * Reason Comments Med Refill Encounter Details Date Type Department Care Team ([facility] st Contact Info) Description 04/04/2023 Refill [facility] [address] [place], [place] [phone] Name, MD Roberto [address] [place] [address] Gastroesophageal reflux disease, unspecified whether esophagitis present Social History Tobacco Use Types Packs/Day Years Used Date Smoking Tobacco: Former Cigarettes Alcohol Use Standard Drinks/Week Comments Never 0 (1 standard drink = 0.6 oz pur e alcohol) Housing Stability Answer Date Recorded What is your housing situation today? I have robynerin vega 01/02/[address] you li ve. Do you have problems with any of the following? None of the above 01/02/2023 Food Insecurity Answer Date Recorded Within the past 12 months, y ou worried that your food would run out before you got money to buy more: Never True 01/02/2023 Within the past 12 months,th e food you bought just didn't last and you didn't have enough money to get more: Never True Transportation Answer Date Recorded In the past 12 months, has l ack of transportation kept you from medical appts, meetings, work or from getting things needed for daily living? No 01/02/2023 Utilities Answer Date Recorded In the past 12 months, has t he electric, gas, oil or water company threatened to shut off services in your home? No 01/02/2023 Depression Answer Date Recorded Patient Health Questionnaire-2 [...] Description 07/08/2024 9:00 AM EDT Office Visit [place] [facility] [address] [place] [address] Cornell Vasquez, BRET [address] [place] [address] documented as of this encounter Visit Diagnoses Diagnosis Gastroesophageal reflux disease, unspecified whether esophagitis present documented in this encounter Care Teams Photo Mask Processor Relationship Specialty Start Date End Date Name, MD Roberto [address] [place] [address] PCP - General Family Medicine 08/19/15 documented as of this encounter
--- OUTSIDE RECORDS SUMMARY | 2024-06-11 12:09 | XMS_ITS | Clinical Summary ---
Author Organization [facility] Address [address] [place] [address] Care Team Providers Care Print Room Worker Name Role Phone Unavailable Primary Care Provider Unavailabl e Social History Tobacco Use Types Packs/Day Years Used Date Smoking Tobacco: Never Assessed Sex and Gender Information Value Date Recorded Sex Assigned at Not on file Legal Sex Male 7:02 AM EST Gender Identity Not on file Sexual Orientation Not on file Plan of Treatment Health Maintenance Due Date Last Done Comments Pneumococcal Vaccine: 50+ Years (1 of 1 - PCV) 2012 Zoster Vaccines (1 of 2) 2012 DTaP,Tdap,and Td Vaccines (2 - Td or Tdap) 07/21/2018 07/21/2008 COVID-19 Vaccine ( - 2023-2 5 season) 2023 Influenza Vaccine (#1) 2023 , 12/11/2012, 01/17/2012 RSV Immunization Adult Patients (1 - 1-dose 75+ series) 2037 HIB Vaccines Aged Out No longer eligi [...] on patient's age to complete this topic MMR Vaccines Aged Out No longer eligi ble based on patient's age to complete this topic Meningococcal ACWY Vaccine Aged Out N o longer eligible based on patient's age to complete this topic Meningococcal B Vaccine Aged Out No l onger eligible based on patient's age to complete this topic Pneumococcal Vaccine: Pediatrics (0 to 5 Years) and At-Risk Patients (6 to 64 Years) Aged Out No longer eligible b ased on patient's age to complete this topic RSV Immunization Patients Under 20 months Aged Out No longer eligible b ased on patient's age to complete this topic Varicella Vaccines Aged Out No longer eligible based on patient's age to complete this topic
== END 2024-06-11 11:25 | disposition home or self-care (01) ==
LOC: HO.HUSH 10:37
PROVIDERS: PCP Internal Medicine Geriatric Medicine; Visit Provider Urology
DX: N40.0 Benign prostatic hyperplasia without lower urinary tract symptoms (principal); R35.0 Frequency of micturition; Z13.9 Encounter for screening, unspecified
CPT/HCPCS: 99214

== ENCOUNTER → 2024-06-11 10:36 | Outpatient (BNVA) | payer OTHER, SELFPAY | PROVIDERS: PCP Internal Medicine Geriatric Medicine; Visit Provider Urology | DX: N52.9 Male erectile dysfunction, unspecified (principal); N40.0 Benign prostatic hyperplasia without lower urinary tract symptoms; R35.0 Frequency of micturition | CPT/HCPCS: 51798; 81003; 99212 ==

== ENCOUNTER 2024-09-01 08:37 | Day surgery (SDC) | payer OTHER, SELFPAY ==
--- OUTSIDE RECORDS SUMMARY | 2024-08-28 13:26 | XMS_ITS | Patient Health Record ---
Author Organization [facility] Address [address] [place] [address] Care Team Providers Care Molded Goods Operator Name Role Phone Name Roberto GRANADOS Primary Care Provider Davian Steward [phone] Allergies No Known Allergies Reason For Referral [...] Problem Status W/U Status Risk Notes Problem [id number] Encounter for screening for malignant neoplasm of colon (Z12.11) Active confirmed Problem 375106426 Abdominal bloati ng (R14.0) Active confirmed Problem 72681269 Constipation, unspecified constipation type (K59.00) Active confirmed Problem Gastroesophageal reflux (K21.9) Active confirmed Problem Diverticulosis of colon (482580235) Diverticulosis of colon (K57.30) Active confirmed Problem 944664224 Gastroesophageal reflux disease, unspecified whether esophagitis present (K21.9) Active confirmed Plan Of Treatment Pending Test Test Name Order Date Pathology 06/22/2021 Future Test Test Name Order Date UPPER GI ENDOSCOPY 05/31/2021 COLONOSCOPY 05/31/2021 Insurance Providers Payer Name Payer Address Payer Phone Subscriber Number Group Number Insured Name Patient Relationship to Insured Coverage Start Date Coverage End Date [facility] [address] [place] [phone] [id number] MEÑO HARRIS Self - patient is the insured Medical (General) History Medical History History ICD Code CVA with transient with right sided weak ness and speech in 2019 Hyperlipidemia Colonoscopy age 47 was negative Denies [place],DM,Lung disease,renal disease GERD Surgical History Surgery Date(Month/Year) Shoulder surgery left Umbilical hernia repair
--- NOTE | 2024-08-29 11:46 | HO.ANESPROP2 ---
Documented by User: Jacqueline Swanson NP 08/29/24 11:47 HPI - Anesthesia Eval Consult details Narrative: 64yo M for Laser Ablation Prostate w/Green Light CVA 2019 - on plavix for secondary prevention - per PCP, no residual or recurrent strokes - ok'd to hold plavix PMFSH Active Problems Active Problems: All Active Problems Lower urinary tract symptoms (Acute) Weak urinary stream (Acute) History of urinary hesitancy (Acute) Erectile dysfunction (Acute) Urinary frequency (Acute) BPH (benign prostatic hyperplasia) (Acute) Personal history of nicotine dependence (Acute) Past Medical History Medical History HTN (hypertension) BPH (benign prostatic hyperplasia) History of CVA (cerebrovascular accident) (~11/2019) Personal history of nicotine dependence Sleep apnea GERD (gastroesophageal reflux disease) Elevated cholesterol Family History Family History Father Prostate cancer Family history of problems with anesthesia: No Surgical History Surgical History History of umbilical hernia repair History of excision of mass History of shoulder surgery History of esophagogastroduodenoscopy (EGD) History of colonoscopy History of Problems with Anesthesia: No Social History Social History Are you a primary animal care taker to a significant other at home: No Do you presently have visiting nurse or other home services: No Alcohol intake: never Patient Tobacco Use Status: Former Tobacco user Tobacco use type: Cigarette Years Smoked: (onset 18yo, 1ppd x 41yrs, 40pyh - quit 12/01/2019) Smoked in Last 30 Days: No Use of substances other than those prescribed or required for medical reasons: No Have you been hit, kicked, punched, or otherwise hurt by someone within the past year? If so, by whom?: No Are you DNR?: No Advance Directives: No Advance Directives Information Provided: No Advance Directives on File: No Poor oral hygiene: No Meds Allergies Allergy/AdvReac Type Severity Reaction Status Date / Time No Known Allergies Allergy Verified 09/01/24 08:48 Home Medications ?Medication ?Instructions ?Recorded ?Confirmed ?Last Taken ?Type clopidogrel 75 mg tablet 75 mg PO DAILY 01/25/21 09/01/24 08/25/24 History pantoprazole 40 mg tablet,delayed 40 mg PO DAILY 01/25/21 09/01/24 Unknown History release losartan 25 mg tablet 25 mg PO DAILY 06/23/22 09/01/24 08/31/24 History rosuvastatin 20 mg tablet 20 mg PO BEDTIME 06/23/22 09/01/24 Unknown History Exam Height,Weight and Vital Signs: Height 5 ft 10 in Assessment and Plan Assessment Anesthesia Assessment: Chart Reviewed Final Anesthetic Review Family History of Problems with Anesthesia: No History of Problems with Anesthesia: No Documented by User: Daya Casillas MD 09/01/24 09:09 [facility] Past Medical History Medical History HTN (hypertension) BPH (benign prostatic hyperplasia) History of CVA (cerebrovascular accident) (~11/2019) Personal history of nicotine dependence Sleep apnea GERD (gastroesophageal reflux disease) Elevated cholesterol Family History Family History Father Prostate cancer Surgical History Surgical History History of umbilical hernia repair History of excision of mass History of shoulder surgery History of esophagogastroduodenoscopy (EGD) History of colonoscopy Social History Social History Are you a primary animal care taker to a significant other at home: No Do you presently have visiting nurse or other home services: No Alcohol intake: never Patient Tobacco Use Status: Former Tobacco user Tobacco use type: Cigarette Years Smoked: (onset 18yo, 1ppd x 41yrs, 40pyh - quit 12/01/2019) Smoked in Last 30 Days: No Use of substances other than those prescribed or required for medical reasons: No Have you been hit, kicked, punched, or otherwise hurt by someone within the past year? If so, by whom?: No Are you DNR?: No Advance Directives: No Advance Directives Information Provided: No Advance Directives on File: No Poor oral hygiene: No Meds Allergies Allergy/AdvReac Type Severity Reaction Status Date / Time No Known Allergies Allergy Verified 09/01/24 08:48 Home Medications ?Medication ?Instructions ?Recorded ?Confirmed ?Last Taken ?Type clopidogrel 75 mg tablet 75 mg PO DAILY 01/25/21 09/01/24 08/25/24 History pantoprazole 40 mg tablet,delayed 40 mg PO DAILY 01/25/21 09/01/24 Unknown History release losartan 25 mg tablet 25 mg PO DAILY 06/23/22 09/01/24 08/31/24 History rosuvastatin 20 mg tablet 20 mg PO BEDTIME 06/23/22 09/01/24 Unknown History Exam Airway Mallampati Class: II TM Dist: >3cm Partial: Upper and Lower Heart: rrr Lungs: cta Assessment and Plan Assessment Anesthesia Assessment: Anesthesia Plan Discussed Final Anesthetic Review NPO: Yes ASA Class: III Final Preanesthetic Review: No Changes in Pt Med Stat, Meds/Allgs Chart Reviewed, Consent Obtained/Reviewed and Anes Risks/Benef Reviewed Patient Risk: Intermediate Procedure Risk: Intermediate Anesthetic Plan Anesthetic Plan: GA Disposition: Standard PACU
[2024-09-01] VITALS (7 sets, daily range): BP systolic 143–165; BP diastolic 76–99; PULSE 61–70; RESP 12–16; TEMP 36.4–36.5; O2SAT 97–99; BMI 32.7
[2024-09-01] MEDS: Lactated Ringers 1,000 ML 100 ML IVCONT (09:12)
--- NOTE | 2024-09-01 09:20 | MHC.SHP ---
Pre-Procedural Eval Section A - 24 Hr Update-Section A only Date of Service: 09/01/24 The patient is an INPATIENT: No Changes since office visit: No Cold of Flu in the past 2 weeks, No New Medical Problems, No Changes in Medication and No Patient answered all questions The patient has been examined within 24 hours of the surgical procedure. The History & Physical has been completed within 30 days and I have reviewed it.: Yes Section B - Complete if H&P > 30 days Chief Complaint: Benign prostatic hyperplasia without lower urinary Allergies: Allergies Allergy/AdvReac Type Severity Reaction Status Date / Time No Known Allergies Allergy Verified 09/01/24 08:48 Plan Diagnosis/Plan: Unchanged (Laser prostatectomy) I have reviewed the history and physical and performed a pertinent physical examination on my patient. No changes have occurred unless specified. Time Spent With Patient Time: Total time managing care of this patient today ____ minutes.
[2024-09-01] MEDS: levoFLOXacin/D5W 500 MG/100 ML PIGGYBACK 100 MG IV (09:25)
--- NOTE | 2024-09-01 10:02 | W.PM.OPN ---
Operative Note Operative Note Date of Service: 09/01/24 Narrative: PreOperative Diagnosis: Bladder outlet obstruction Post Operative Diagnosis: Bladder outlet obstruction Procedure: GreenLight Laser Enucleation of the prostate CPT 79224 Surgeon: Dr Timur Min Anesthesia: General History of bladder outlet obstruction. Treated with alpha-janice and other medications. Still with symptoms. On cystoscopy in office has trilobar prostate . Recommendation for prostate procedure with laser enucleation of prostate. 65gm on US Risks and benefits have been discussed. Focus was placed on development of retrograde ejaculation which is a normal part of this procedure. Procedure: After informed consent was verified the patient was brought to the operating room and placed in a supine position. Anesthesia was administered per protocol. Patient was placed in modified dorsal lithotomy position and prepped and draped in a sterile fashion. Safety pause time-out was confirmed. Antibiotics have been given. A Twenty-four Montserratian laser cystoscope was inserted per urethra. No abnormalities were found of the anterior and bulbar urethra. The prostatic urethra shows trilobar hypertrophy. The bladder was examined and both ureteric orifices were seen in their normal positions away from the area of interest. Bladder trabeculation Grade 2. Using a GreenLight laser with initial settings of 80 terry incisions were made at the 5 and 7 o'clock position. The incisions were taken down from the bladder neck down to the area just proximal of the veru. These were gradually deepened in order to define the lateral aspects of the median lobe area. The deep boundary of enucleation was defined by the prostate surgical capsule. Once clearly defined the grooves were extended in the lateral directions in order to create a deep groove. The median lobe was then ablated and enucleated tissue released into the bladder with the laser power increased to 120 W. SMall median lobe. Once the median lobe area had been cleared, attention was directed to the lateral lobes. Starting with the patient's left lateral lobe. First the 05:00 o'clock groove was further developed. This was moved in the lateral direction to undermine the tissue on the lateral side running from the bladder neck to the prostate apex. The ureteric orifice was used to guide incisions. The laser fiber was placed at the 1 o'clock position and a secondary groove was developed down to the level of prostatic capsule. The creation of a second deep groove defined a segment of intervening tissue similar to a slice of orange. At the apex of the prostate the laser was used to vertically link the two grooves releasing the intervening tissue and creating a segment of tissue. This tissue was then removed with a combination of enucleation and ablation working from the apex toward the bladder neck. A similar procedure was repeated on the patient's right-hand side. The only differences being the position of the lateral groove at he 7 o'clock position and the secondary groove at the 11 o'clock position, Otherwise the procedure was developed in a mirror fashion. 120 W After the majority of tissue had been debulked remnant tissue was ablated with the side fire laser and the curve of the prostate followed up each side wall clearly defining the anterior remnant strip that remained between the 11 and 1 o'clock positions. At completion debris and pieces of prostate were removed from the bladder with irrigation. Both ureteric orifices were reviewed again in shown to be patent in away from any areas of energy damage. The apical area was reviewed and any stray mucosal ooze was controlled. A 22 Montserratian 30 cc balloon Hodgson catheter was placed into the bladder using a flexible stylet. Clear efflux was obtained upon irrigation with a Laura piston syringe. 30 cc was placed in the balloon and gentle traction was placed. A snap was used to hold tension on the catheter to control bleeding during patient moved and transported. A drainage bag was placed. Once transportation is complete to the PACU the snap will be removed. The patient tolerated the procedure well, he was extubated in the operating and transferred in a stable condition to the recovery area. Total Power 97 kJ Lasing time 14:40 Pathology: Prostate tissue Drains: Hodgson catheter
[2024-09-01] MEDS: oxyCODONE HCl Immed Release 5 MG TABLET PO (10:30)
== END 2024-09-01 11:08 | disposition home or self-care (01) ==
PROVIDERS: PCP Internal Medicine Geriatric Medicine; Visit Provider Urology
PROC: (CPT 52648; principal; 2024-09-01 09:40)
DX: N40.1 Benign prostatic hyperplasia with lower urinary tract symptoms (principal); N13.8 Other obstructive and reflux uropathy; N32.89 Other specified disorders of bladder; R39.12 Poor urinary stream; R35.0 Frequency of micturition; N52.9 Male erectile dysfunction, unspecified; E78.00 Pure hypercholesterolemia, unspecified; K21.9 Gastro-esophageal reflux disease without esophagitis; G47.33 Obstructive sleep apnea (adult) (pediatric); Z86.73 Personal history of transient ischemic attack (TIA), and cerebral infarction without residual deficits; Z79.899 Other long term (current) drug therapy; Z98.890 Other specified postprocedural states; Z87.891 Personal history of nicotine dependence
CPT/HCPCS: 52649; 88305; J1100; J1956; J2003; J2250; J2405; J2704; J3010

== ENCOUNTER → 2024-09-01 08:37 | Outpatient (BNV) | payer OTHER, SELFPAY | PROVIDERS: PCP Internal Medicine Geriatric Medicine; Visit Provider Urology | DX: N32.0 Bladder-neck obstruction (principal) | CPT/HCPCS: 52649 ==

== ENCOUNTER → 2024-09-03 09:21 | Outpatient (BNVA) | payer OTHER, SELFPAY | PROVIDERS: PCP Internal Medicine Geriatric Medicine; Visit Provider Urology | DX: N40.0 Benign prostatic hyperplasia without lower urinary tract symptoms (principal) | CPT/HCPCS: 51700; 51798 ==

== ENCOUNTER 2024-10-14 09:37 | Outpatient (AMB) | payer OTHER, SELFPAY ==
--- NOTE | 2024-10-14 09:50 | A.OFFVIS_ITS ---
Intake Visit Reasons: Greenlight follow up Intake Note: Patient is present for Greenlight follow up Urology Medication: Tadalafil Antibiotic Allergy:NONE Blood Thinner: Clopidogrel TODAY'S PVR: 31ML'S Stove Mounter Required: No Accompanied by: Self / Same As Patient Allergies No Known Allergies Allergy (Verified 10/14/24 09:58) HPI Comments Details: Migel is a pleasant male. He is a patient of Dr. Schaeffer. He is seen for the following conditions - lower urinary tract symptoms - erectile dysfunction Eight weeks post GreenLight PVR low Effective emptying Six-month follow-up repeat PSA Lower urinary tract symptoms Predominantly weakness of stream Prior trial of Flomax On finasteride medical Sunday, Sunday Renal ultrasound notes no calculi, low postvoid residual Prior cystoscopy 12/26 Medium-sized prostate Small median lobe Prior bladder ultrasound 65 g prostate with calcification PSA 10/25 2.9, 05/26 1.1 08/27 GreenLight laser prostatectomy Erectile dysfunction Responds to Cialis 5 mg daily PFSH Medical History HTN (hypertension) BPH (benign prostatic hyperplasia) History of CVA (cerebrovascular accident) (~11/2019) Personal history of nicotine dependence Sleep apnea GERD (gastroesophageal reflux disease) Elevated cholesterol Surgical History History of umbilical hernia repair History of excision of mass History of shoulder surgery History of esophagogastroduodenoscopy (EGD) History of colonoscopy Family History Father Prostate cancer Social History Are you a primary before and after school daycare worker to a significant other at home: No Do you presently have visiting nurse or other home services: No Alcohol intake: never Patient Tobacco Use Status: Former Tobacco user Tobacco use type: Cigarette Years Smoked: (onset 18yo, 1ppd x 41yrs, 40pyh - quit 12/01/2019) Review of Systems Const Denies chills and Denies fever(s) Card Reports no additional complaints and Denies syncope Resp Denies cough GI Denies abdominal pain and Denies heartburn Reports as per HPI and Denies change in libido Neuro Denies syncope Psych Denies change in libido Endo Denies change in libido Physical Exam Const General: cooperative, healthy appearing, comfortable and no acute distress Orientation/consciousness: patient oriented x3 HEENT Face and sinus: Yes normal facial exam Mouth: moist mucous membranes Neck Neck: Yes normal visual inspection, Yes full ROM and Yes trachea midline Chest Chest palpation & inspection: normal inspection of the chest Resp Effort & Inspection: normal respiratory effort, able to speak in complete sentences and no respiratory distress GI Inspection: Yes normal to inspection Back/Spine/Pelvis Cervical Spine: normal cervical lordosis Thoracic/Lumbar Spine: thoracic and lumbar spine normal to inspection Skin General skin exam: no rashes or lesions noted Neuro General: patient oriented x3, gait normal, tone normal and moves all extremities Extrem General: Yes normal to inspection and Yes capillary refill normal Office Procedures Post Void Residual Post Residual Void Post Void Residual (PVR): 31 03663-Ozkg Void Residual by ultrasound Assessment & Plan Assessment & Plan (1) Urinary frequency: Code(s): R35.0 - Frequency of micturition Category: Medical (2) Erectile dysfunction: Code(s): N52.9 - Male erectile dysfunction, unspecified Category: Medical (3) Lower urinary tract symptoms: Code(s): R39.9 - Unspecified symptoms and signs involving the genitourinary system Category: Medical Plan Continue daily tadalafil Orders: Orders Prostate Specific Antigen 6 Months N40.0 - Benign prostatic hyperplasia without lower urinary tract symptoms AMB Post Void Residual by ultrasound 10/14/24 N40.0 - Benign prostatic hyperplasia without lower urinary tract symptoms Medications: Refilled tadalafil (Cialis) [id number] [facility] [id number] Member [id number] 5 mg PO DAILY 90 tabs 0RF sexual activity N40.0 - Benign prostatic hyperplasia without lower urinary tract symptoms Patient Instructions: This note is constructed using voice recognition software. While every effort has been made to ensure accuracy franchise business consultant errors may have been included. Imaging studies, laboratory and physical exam results were discussed and reviewed in detail. No major barriers to patient understanding were identified. An opportunity to ask questions regarding the treatment plan was provided. All questions were answered. The patient expressed understanding and agreement with the above treatment plan. The patient is aware they should contact our office by phone for worsening of their current condition or the appearance of new urologic symptoms. Compliance is encouraged with any medications and followup testing that is ordered. It is a privilege to participate in the urologic care of your patient. If you have any questions or concerns regarding treatment for the above conditions, or other urologic issues, please do not hesitate to contact me. The office telephone contact is [phone]. Sincerely, Dr Timur Min MD, [facility] - Urology Compassionate Specialist Care for the Genitourinary System Coding Level of Care Code Est Pt Level 3 (68500) Diagnoses Urinary frequency R35.0 Erectile dysfunction N52.9 Lower urinary tract symptoms R39.9 CPT Codes Post Residual Void - PVR CPT Code: 66124-Wfpr Void Residual by ultrasound ([id number])
--- OUTSIDE RECORDS SUMMARY | 2024-10-14 10:18 | XMS_ITS | Patient Health Record ---
Author Organization [facility] Address [address] [place] [address] Care Team Providers Care Nursing Home Admissions Director Name Role Phone Name Roberto GRANADOS Primary Care Provider Davian Steward [phone] Allergies No Known Allergies Reason For Referral [...] Problem Status W/U Status Risk Notes Problem [id number] Encounter for screening for malignant neoplasm of colon (Z12.11) Active confirmed Problem [id number] Abdominal bloati ng (R14.0) Active confirmed Problem 80986993 Constipation, unspecified constipation type (K59.00) Active confirmed Problem Gastroesophageal reflux (K21.9) Active confirmed Problem Diverticulosis of colon (117654909) Diverticulosis of colon (K57.30) Active confirmed Problem [id number] Gastroesophageal reflux disease, unspecified whether esophagitis present (K21.9) Active confirmed Plan Of Treatment Pending Test Test Name Order Date Pathology 06/22/2021 Future Test Test Name Order Date UPPER GI ENDOSCOPY 05/31/2021 COLONOSCOPY 05/31/2021 Insurance Providers Payer Name Payer Address Payer Phone Subscriber Number Group Number Insured Name Patient Relationship to Insured Coverage Start Date Coverage End Date [facility] [address] [place] [phone] [id number] MEÑO HARRIS Self - patient is the insured Medical (General) History Medical History History ICD Code CVA with transient with right sided weak ness and speech in 2019 Hyperlipidemia Colonoscopy age 47 was negative Denies MS,DM,Lung disease,renal disease GERD Surgical History Surgery Date(Month/Year) Shoulder surgery left Umbilical hernia repair
--- OUTSIDE RECORDS SUMMARY | 2024-10-14 10:18 | XMS_ITS | Clinical Summary ---
Author Organization [facility] it Address [address] [place] [address] Care Team Providers Care Cardiac Cath Technician Name Role Phone Unavailable Primary Care Provider [...] Td or Tdap) 07/21/2018 07/21/2008 COVID-19 Vaccine (1 - 2023-2 5 season) 2023 Depression Screening 03/05/2024 Influenza Vaccine (#1) 2024 5, 12/11/2012, 01/17/2012 RSV Immunization Adult Patients (1 [...]
--- OUTSIDE RECORDS SUMMARY | 2024-10-14 10:18 | XMS_ITS | Encounter Summary ---
Author Organization [employer] Address [address] [facility] [address] [place] [address] Care Team Providers Care Heel Seat Trimmer Name Role Phone Name, Roberto GRANADOS Primary Care Provider [phone] Reason for Visit * Reason Comments Med Refill Encounter Details Date Type Department Care Team ([facility] st Contact Info) Description 08/27/2023 Refill [facility] [address] [place], [place] [id number] Name, MD Roberto [address] [place] [address] Allergic conjunctivitis of both eyes; Sciatic leg [...] Care Team (Late st Contact Info) Description 12/26/2024 11:45 AM EDT Office Visit [facility] [address] [place] [address] MD [address] [place] [address] documented as of this encounter Visit Diagnoses Diagnosis Allergic conjunctivitis of both eyes Other chronic allergic conjunctivitis Sciatic leg pain documented in this encounter Additional Health Concerns Assessment Noted Time PHQ-9 Depression Total Score: 0 05/14/19 24 10:44 AM EDT documented as of this encounter Care Teams Heel Seat Trimmer Relationship Specialty Start Date End Date Name, MD Roberto [address] [place] [address] PCP - General Family Medicine 08/19/15 documented as of this encounter
== END 2024-10-14 10:35 | disposition home or self-care (01) ==
LOC: HO.HUSH 09:37
PROVIDERS: PCP Internal Medicine Geriatric Medicine; Visit Provider Urology
DX: R35.0 Frequency of micturition (principal); N52.9 Male erectile dysfunction, unspecified; R39.9 Unspecified symptoms and signs involving the genitourinary system
CPT/HCPCS: 99024

== ENCOUNTER → 2024-10-14 09:37 | Outpatient (BNVA) | payer OTHER, SELFPAY | PROVIDERS: PCP Internal Medicine Geriatric Medicine; Visit Provider Urology | DX: N40.0 Benign prostatic hyperplasia without lower urinary tract symptoms (principal) | CPT/HCPCS: 51798 ==

== ENCOUNTER 2025-02-25 10:16 | Outpatient (REF) | payer OTHER, SELFPAY ==
--- NOTE | ~2025-02-25 | CT_ITS ---
EXAMINATION: CT LUNG SCREENING HISTORY: Z87.891 - Personal history of nicotine dependence TECHNIQUE: Low dose axial images were obtained from the sternal notch to upper abdomen without IV contrast per standard departmental protocol. Sagittal and coronal reformatted images were also obtained and reviewed. One or more of the following techniques was used for dose reduction: Automated exposure control, adjustment of the mA and/or kV according to patient size, use of iterative reconstruction technique. DLP: 65 mGy-cm COMPARISON: Comparison is made with the prior examination dated 01/24/2024. FINDINGS: Lung nodules: There is a 2 mm nodule in the right middle lobe (series 5, image 78). No suspicious pulmonary nodules are identified. Emphysema: none Coronary Calcification: severe Aortic Arch Calcification: mild Potentially Significant Incidentals : none Additional Chest Findings: There is no pleural or pericardial effusion. No mediastinal or axillary lymphadenopathy is identified. Visualized upper abdomen: The visualized portions of the liver, spleen, and adrenals have an unremarkable unenhanced appearance. CT/CT lung screening IMPRESSION: No suspicious pulmonary nodules are identified. LUNG-RADS ASSESSMENT: Lung-RADS 2: Benign MANAGEMENT: Continue annual screening with LDCT in 12 months Category S: N/A Electronically signed by: Davian Shah MD 02/25/2025 11:09 AM [facility]
--- OUTSIDE RECORDS SUMMARY | 2025-02-25 10:26 | XMS_ITS | Encounter Summary ---
Author Organization [employer] Address [address] [facility] [address] [place] [address] Care Team Providers Care Facing Cutting Machine Operator Name Role Phone Name, Roberto GRANADOS Primary Care Provider [phone] Encounter Details Date Type Department Care Team ([facility] st Contact Info) Description 08/04/2022 Abstract [facility] [address] [place], [place] [phone] Name, MD Roberto [address] [place] [address] Social History Tobacco Use Types Packs/Day Years [...] as of this encounter Plan of Treatment Not on file documented as of this encounter Procedures Procedure Name Priority Date/Time Associated Diagnosis Comments COLONOSCOPY Routine 06/23/2021 2:02 PM EDT documented in this encounter Results * Hm Colonoscopy (06/23/2021 2:02 PM EDT) Colonoscopy Normal Normal Narrative Mary Lira - 06/23/2021 2:02 PM EDT Recommended 10 year follow up us Historical Provider HEALTH MAINTENANCE Final Result documented in this encounter Visit Diagnoses Not on filedocumented in this encounter Care Teams Facing Cutting Machine Operator Relationship Specialty Start Date End Date Name, MD Robetro [address] [place] [address] PCP - General Family Medicine 08/19/15 documented as of this encounter
--- OUTSIDE RECORDS SUMMARY | 2025-02-25 10:26 | XMS_ITS | Clinical Summary ---
Author Organization [employer] Address [address] [facility] 7[address] [place] [address] Care Team Providers Care Freight Dispatcher Name Role Phone Name, Roberto GRANADOS Primary Care Provider [phone] Allergies No known active allergies Medications albuterol 108 (90 Base) MCG/ACT inhaler [...] 23 Active Diclofenac Sodium (Voltaren) 1 % gelIndications:Me dial epicondylitis of elbow, left Apply once a day to the affected skin 100 g 1 02/09/20 23 Active finasteride (Proscar) 5 MG tablet 07/31/19 24 Active tamsulosin (Flomax) 0.4 MG 24 hr capsule Take 0.4 mg by mouth at bedtime. 07/31/19 24 Active LORazepam (Ativan) 1 MG tablet Take 1 tablet (1 mg) by mouth See administration instructions for 1 day. Take 1 tab per month 30 to 60 minutes prior to blood draw. Do not drive after using the med 1 tablet 02/14/20 24 Active clopidogrel (Plavix) 75 MG tablet Take [...] 360 capsule 1 04/24/19 25 026 Active ibuprofen 800 MG tablet TAKE 1 TABLET(800 MG) BY MOUTH EACH DAY NEEDED FOR MILD PAIN OR MODERATE PAIN 60 tablet 1 10/15/19 Active rosuvastatin (Crestor) 20 MG tablet TAKE 1 TABLET(20 MG) BY MOUTH IN THE MORNING 90 tablet 1 12/27/19 Active hydroCHLOROthiazi de 12.5 MG tabletIndications :Primary hypertension Take 1 tablet (12.5 mg) by mouth Once per day. 30 tablet 1 5 4:28 PM EST 01/20/20 Active pantoprazole (ProtoNix) 40 MG EC tabletIndications :Gastroesophageal reflux disease, unspecified whether esophagitis present TAKE 1 TABLET(40 MG) BY MOUTH BEFORE BREAKFAST 90 tablet 1 01/27/20 Active Active Problems Problem Noted Date Diagnosed Date Precordial pain 01/19/2025 SOB (shortness of breath) 01/19/2025 Elevated triglycerides with high cholesterol Encounter for screening for malignant neoplasm o f colon 10/20/2022 Former smoker 07/26/2022 Obesity 07/26/2022 Diverticulosis of colon 03/27/2022 Gastro-esophageal reflux disease without esophag itis 03/27/2022 Hypertensive disorder 03/27/2022 Internal hemorrhoids 03/27/2022 Lacunar infarction (CMS/HCC) 03/27/2022 Overview (04/24/2024): Severity: mild in 2020. Type of stroke is Ischemic (lacunar). Status [...] Encounters Date Type Department Care Team Description 02/03/2025 11:00 AM EST Clinical Support [facility] [address] [place] [address] Luann Sandoval, ZENAIDA Primary hypertension 02/03/2025 Telephone [facility] [address] [place] [address] Roberto Schaeffer MD 02/03/2025 Travel 01/25/[address] [address] Roberto Schaeffer MD Gastroesophageal reflux disease, unspecified whether esophagitis present 01/19/2025 2:45 PM EST Office Visit [address] [address] Bonnie Abreu MD Precordial pain; SOB (shortness of breath); Primary hypertension 01/19/2025 Travel 01/19/2025 Telephone [facility] [address] [place] [address] Patito Pastor RN nurse triage 12/24/2024 Refill [facility] [address] [place] [address] Roberto Schaeffer MD 12/12/2024 11:45 AM EDT Office Visit [address] MD Seborrheic keratoses (Primary Dx); Accessory skin tags; Skin cancer screening 12/12/2024 Travel from Last 3 Months Immunizations Immunization Administration Dates Next Due Influenza injectable quadriv [...] Sign Reading Time Taken Comments Blood Pressure 126/78 02/03/2025 11:35 AM EST Pulse 80 02/03/2025 11:34 AM EST Temperature 36.2 C (97.1 F) 01/19/2025 2:55 PM EST Respiratory Rate 20 02/03/2025 11:34 AM EST Oxygen Saturation 94% 01/19/2025 2:55 PM EST Inhaled Oxygen Concentration - - Weight 103 kg (226 lb 12.8 oz) 02/03/2025 11:34 AM EST Height 177.8 cm (5' 10 ) 01/19/2025 2:55 PM EST Body Mass Index 32.54 01/19/2025 2:55 PM EST Plan of Treatment Health Maintenance Due Date Last Done Comments CT Colonography 1962 FIT DNA/Cologuard 1962 FIT 1962 FOBT 1962 HIV Screening 1962 Sigmoidoscopy 1962 Disability Screening 1962 Zoster Vaccines (1 of 2) 2012 Pneumococcal Vaccine: 50+ Years (2 of 2 - PCV) 06/14/2017 06/14/2016 SDOH Screening 05/13/2024 05/14/2023 COVID-19 Vaccine (3 - season) 2024 06/26/2020, 06/01/2020 Influenza Vaccine (#1) 2024 , 01/19/2015, 12/11/2012, Additional history exists Alcohol/Substance Use Screening 04/24/2025 04/24/2024 Depression Screening 04/24/2025 04/24/2024, 04/24/19 Tobacco Screening 02/03/2026 02/03/2025 Lipid Panel 02/15/2029 02/16/2024, 05/03, 10/25/2022, Additional history exists Colonoscopy 06/24/2031 06/23/2021 Colorectal Cancer Screening 06/24/2031 DTaP/Tdap/Td Vaccines (3 - Td or Tdap) 02/08/2033 02/08/2023, 07/21/2008 RSV Patients and Patients Aged 60 years or older (1 - 1-dose 75+ series) 2037 Hepatitis C Screening Completed 10/25/2017 HIB Vaccines [...] Procedure Name Priority Date/Time Associated Diagnosis Comments ECG 12-LEAD Routine 01/19/2025 4:24 PM EST Precordial pain LIPID PANEL, STANDARD Routine 02/16/2024 11:00 AM EST History of CVA (cerebrovascular accident) Combined hyperlipidemia Hypertension, unspecified type HM COLONOSCOPY Routine 06/23/2021 2:02 PM EDT HEPATITIS C ANTIBODY Routine 10/25/2017 from Last 3 Months or Most Recently Relevant to Health Maintenance Results * ECG 12 lead (01/19/2025 4:24 PM EST) Narrative Bonnie Abreu MD - 01/19/2025 4:24 PM EST NSR us Bonnie Bearden MD ECG ORDERABLES Final Result * (ABNORMAL) Lipid Panel, Standard (02/16/2024 11:00 AM EST) Triglycerides 146 <150 mg/dL [facility] Comment:Desirable Triglyceri de: less than 150 mg/dLBorderline High Triglyceride 150-199 mg/dLHigh Triglyceride: 200-499 mg/dLVery High Triglyceride: greater than or equal to 5OO mg/dL Cholesterol 175 <200 mg/dL [facility] Comment:Desirable Cholestero l: less than 200 mg/dLBorderline High Cholesterol: 200-239 mg/dLHigh Cholesterol: greater than 239 mg/dL LDL Cholesterol Calculated 113(H) <100 mg/dL [facility] Comment:Desirable LDL: less than 100 mg/dLNear Optimal/Above Optimal LDL: 110- 129 mg/dLBorderline High LDL: 130-159 mg/dLHigh LDL: 160-189 mg/dLVery High LDL: greater than or equal to 190 mg/dL HDL Cholesterol 33(L) >40 mg/dL [facility] Comment:Desirable HDL: great er than 40 mg/dL Note: This HDL assay may give artificially low results in patients with liver disease. Blood Venous blood specimen / Unknown 02/16/2024 11:00 AM EST 02/16/2024 11:00 AM EST us Roberto Schaeffer MD LAB BLOOD ORDERABLES Final Resul t [facility] [address] [place] [phone] * Colonoscopy (06/23/2021 2:02 PM EDT) Colonoscopy Normal Normal Narrative Mary Lira - 06/23/2021 2:02 PM EDT Recommended 10 year follow up [facility] Provider HEALTH MAINTENANCE Final Result * Hepatitis C Antibody (10/25/2017) Hepatitis C Antibody Nonreactive Blood us Roberto Schaeffer MD HEALTH MAINTENANCE Final Result from Last 3 Months or Most Recently Relevant to Health Maintenance Insurance [facility]MERLY [facility] Care Teams Freight Dispatcher Relationship Specialty Start Date End Date Name, MD Roberto [address] [place] [id number] PCP - General Family Medicine 08/19/15
--- OUTSIDE RECORDS SUMMARY | 2025-02-25 10:26 | XMS_ITS | Clinical Summary ---
Author Organization [facility] Address [address] [place] [address] Care Team Providers Care Security Technician Name Role Phone Unavailable Primary Care [...] (2 - Td or Tdap) 07/21/2018 07/21/2008 Depression Screening 03/05/2024 COVID-19 Vaccine (1 - 2024-2 6 season) 2024 Influenza Vaccine (#1) 2024 5, 12/11/2012, 01/17/2012 [...]
--- OUTSIDE RECORDS SUMMARY | 2025-02-25 10:26 | XMS_ITS | Encounter Summary ---
Author Organization [employer] Address [address] [facility] 7t [place] [address] Care Team Providers Care Quality Assurance Monitor Name Role Phone Name, Roberto GRANADOS Primary Care Provider [phone] Reason for Visit * Reason Comments Med Refill Encounter Details Date Type Department Care Team ([facility] st Contact Info) Description 08/27/2023 Refill [facility] [address] [place], [place] [phone] Name, MD Roberto [address] [place] [address] Allergic conjunctivitis of both eyes; Sciatic leg [...] on file documented as of this encounter Visit Diagnoses Diagnosis Allergic conjunctivitis of both eyes Other chronic allergic conjunctivitis Sciatic leg pain documented in this encounter Additional Health Concerns Assessment Noted Time PHQ-9 Depression Total Score: 0 05/14/19 24 10:44 AM EDT documented as of this encounter Care Teams Quality Assurance Monitor Relationship Specialty Start Date End Date Name, MD Roberto [address] [place] [address] PCP - General Family Medicine 08/19/15 documented as of this encounter
--- OUTSIDE RECORDS SUMMARY | 2025-02-25 10:26 | XMS_ITS | Encounter Summary ---
Author Organization [employer] Address [address] [facility] 7t [place] [address] Care Team Providers Care Drapery Supervisor Name Role Phone Name, Roberto GRANADOS Primary Care Provider [phone] Reason for Visit * Reason Comments Med Refill Encounter Details Date Type Department Care Team ([facility] st Contact Info) Description 04/04/2023 Refill [facility] [address] [place], [place] [phone] Name, MD Roberto [address] [place] [address] Gastroesophageal reflux disease, unspecified whether esophagitis present [...] present documented in this encounter Care Teams Drapery Supervisor Relationship Specialty Start Date End Date Name, MD Roberto [address] [place] [address] PCP - General Family Medicine 08/19/15 documented as of this encounter
--- OUTSIDE RECORDS SUMMARY | 2025-02-25 10:26 | XMS_ITS | Patient Health Record ---
Author Organization [facility] Address [address] [place] [address] Care Team Providers Care Mechanical Technical Service Specialist Name Role Phone Name Roberto GRANADOS Primary Care Provider Davian Steward [phone] Allergies No Known Allergies Reason For Referral No Information Medications Medication SIG (Take, Route, Frequency, Duration) Notes Start Date End Date Status Clopidogrel Bisulfate 75 MG Tablet TAKE 1 TABLET BY MOUTH EVERY DAY Oral; Duration: 30 Active Pantoprazole Sodium 40 MG Tablet Delayed Release Oral; Duration: 30 Active Pravastatin Sodium 20 MG Tablet TAKE 1 TABLET BY MOUTH EVERY DAY AT BEDTIME Oral; Duration: 30 Active Immunizations Vaccine Route Administration Date Status Comme nts Influenza Unknown 05/31/2021 Refused Social History Tobacco Use: Social History Observation Description Date Details (start date - stop date) Former Smoker NA - NA Social History Drugs/Alcohol: Social Info Question Answer Notes Alcohol Screen Did you have a drink containing alcohol in the past year? No Points 0 Interpretation Negative Tobacco Use: Social Info Question Answer Notes Tobacco Use/Smoking Patient is a former smoker How long has it been since you last smoked? 1-5 years Additional Details Category Social Info Options Details Miscellaneous: Marital status: single Occupation: Schoolbus feeder driver Section Notes: Nonsmoker; no alcohol Problems Problem Type SNOMED Code ICD Code Onset Dates Problem Status W/U Status Risk Notes Problem Screening for malignant neoplasm of colon (289312769) Encounter for screening for malignant neoplasm of colon (Z12.11) Active confirmed Problem Abdominal bloating (595103861) Abdominal bloating (R14.0) Active confirmed Problem Constipation (27257900) Constipation, unspecified constipation type (K59.00) Active confirmed Problem Esophageal reflux finding (638452261) Gastroesophageal reflux (K21.9) Active confirmed Problem Diverticulosis of colon (131418060) Diverticulosis of colon (K57.30) Active confirmed Problem Gastroesophageal reflux disease (691011957) Gastroesophageal reflux disease, unspecified whether esophagitis present (K21.9) Active confirmed Plan Of Treatment Pending Test Test Name Order Date Pathology 06/22/2021 Future Test Test Name Order Date UPPER GI ENDOSCOPY 05/31/2021 COLONOSCOPY 05/31/2021 Insurance Providers Payer Name Payer Address Payer Phone Subscriber Number Group Number Insured Name Patient Relationship to Insured Coverage Start Date Coverage End Date [facility] [address] [place] [phone] [id number] MEÑO HARRIS Self - patient is the insured Medical (General) History Medical History History ICD Code CVA with transient with right sided weak ness and speech in 2019 Hyperlipidemia Colonoscopy age 47 was negative Denies ND,DM,Lung disease,renal disease GERD Surgical History Surgery Date(Month/Year) Shoulder surgery left Umbilical hernia repair
--- OUTSIDE RECORDS SUMMARY | 2025-02-25 10:26 | XMS_ITS | Encounter Summary ---
Author Organization [employer] Address [address] [facility] 7[address] [place] [address] Care Team Providers Care Brass Buffer Name Role Phone Name, Roberto GRANADOS Primary Care Provider [phone] Reason for Visit * Reason Comments Med Refill Encounter Details Date Type Department Care Team ([facility] st Contact Info) Description 08/05/2024 Refill [facility] [address] [place], [place] [phone] Name, MD Roberto [address] [place] [address] Social History Tobacco Use Types Packs/Day Years [...] documented as of this encounter Visit Diagnoses Not on filedocumented in this encounter Additional Health Concerns Assessment Noted Time PHQ-9 Depression Total Score: 0 04/24/19 25 10:58 AM EST documented as of this encounter Care Teams Brass Buffer Relationship Specialty Start Date End Date Name, MD Roberto [address] [place] [address] PCP - General Family Medicine 08/19/15 documented as of this encounter
== END 2025-02-25 10:17 | disposition home or self-care (01) ==
LOC: HO.CT 10:16
PROVIDERS: PCP Internal Medicine Geriatric Medicine; Visit Provider Physician Assistant Medical
DX: Z87.891 Personal history of nicotine dependence (principal)
CPT/HCPCS: 71271

== ENCOUNTER → 2025-02-25 10:18 | Outpatient (BNV) | payer OTHER, SELFPAY | PROVIDERS: PCP Internal Medicine Geriatric Medicine; Visit Provider Radiology Diagnostic Radiology | DX: Z87.891 Personal history of nicotine dependence (principal) | CPT/HCPCS: 71271 ==